=== PATIENT | male | born 1945 ===

== ENCOUNTER 2018-04-13 08:47 | Observation (INO) | payer OTHER ==
--- NOTE | 2018-04-13 09:10 | ED PDOC ---
HPI: SOB/CHF/COPD Time Seen by Provider: 04/13/18 09:01 History Per: Patient Current Symptoms Are (Timing): Still Present Severity: Mild Additional Complaint(s): SOB assoc with dizziness intermittently x 30 days but worse today. Denies chest pain or palpitations. Denies fever or cough. Past Medical History Vital Signs: Last Vital Signs Temp 97.8 F 04/13/18 08:55 Pulse 108 H 04/13/18 08:55 Resp 20 04/13/18 08:55 BP 173/91 H 04/13/18 08:55 Pulse Ox 97 04/13/18 08:55 - Medical History PMH: CAD - Surgical History Surgical History: CABG - Family History Family History: States: Unknown Family Hx - Allergies Allergies/Adverse Reactions: Allergies Allergy/AdvReac Type Severity Reaction Status Date / Time Unobtainable Allergy Verified 04/13/18 09:01 Review of Systems ROS Statement: Except As Marked, All Systems Reviewed And Found Negative Respiratory: Positive for: Shortness of Breath Neurological: Positive for: Dizziness Physical Exam - Reviewed Nursing Documentation Reviewed: Yes Vital Signs Reviewed: Yes - Physical Exam Appears: Positive for: Non-toxic, No Acute Distress Head Exam: Positive for: ATRAUMATIC, NORMAL INSPECTION, NORMOCEPHALIC Skin: Positive for: Normal Color, Warm, DRY Eye Exam: Positive for: EOMI, Normal appearance, PERRL ENT: Positive for: Normal ENT Inspection Neck: Positive for: Normal, Painless ROM Cardiovascular/Chest: Positive for: Regular Rate, Rhythm Respiratory: Positive for: CNT, Normal Breath Sounds Gastrointestinal/Abdominal: Positive for: Normal Exam, Soft Back: Positive for: Normal Inspection Extremity: Positive for: Normal ROM Neurologic/Psych: Positive for: Alert, Oriented - Laboratory Results Result Diagrams: 04/13/18 09:09 04/13/18 09:09 - ECG O2 Sat by Pulse Oximetry: 97 Disposition - Clinical Impression Clinical Impression: Abnormal EKG - Patient ED Disposition Is Patient to be Admitted: Yes - Disposition Disposition Time: 12:24 Condition: FAIR - Pt Status Changed To: Hospital Disposition Of: Observation - POA Present On Arrival: None
[2018-04-13 09:22] LABS: BASO % 0.4 % (0.0-2.0); EOS # 0.1 K/uL (0.0-0.7); EOS % 0.7 % (0.0-4.0); HEMOGLOBIN 14.9 g/dL (12.0-18.0); LYMPH % 22.5 % (20.0-40.0); MEAN CELL VOLUME 91.7 fl (80.0-94.0); MEAN CORPUSCULAR HEMOGLOBIN 29.9 pg (27.0-31.0); MEAN CORPUSCULAR HGB CONC 32.7 g/dL (33.0-37.0); MEAN PLATELET VOLUME 10.3 fl (7.2-11.7); MONO # 0.7 K/uL (0.0-0.8); MONO % 7.5 % (0.0-10.0); NEUT % 68.9 % (50.0-75.0); NRBC % 0.2 % (0.0-0.0); RBC 4.96 Mil/uL (4.40-5.90); RED CELL DISTRIBUTION WIDTH 14.3 % (11.5-14.5); WHITE BLOOD COUNT 8.7 K/uL (4.8-10.8)
[2018-04-13 09:38] LABS: ALB/GLOB RATIO 1.1 (1.0-2.1); ALBUMIN 3.8 g/dL (3.5-5.0); ALT/SGPT 46 U/L (21-72); AST/SGOT 36 U/L (17-59); BLOOD UREA NITROGEN 18 mg/dl (9-20); CALCIUM 8.4 mg/dL (8.4-10.2); GFR NON-AFRICAN AMERICAN > 60
[2018-04-13] MEDS ORDERED: Potassium Chloride 20 mEq ER Tab PO ONE ×2 (10:07→15:14)
--- NOTE | 2018-04-13 10:15 | RAD ---
Date of service: 04/13/2018 HISTORY: <info_study_reason> COMPARISON: No prior. TECHNIQUE: Chest PA and lateral FINDINGS: LINES AND TUBES: None. LUNG AND PLEURA: The lungs are well inflated. There is mild pulmonary venous congestion and interstitial pulmonary edema. There are small effusions. No pneumothorax. HEART AND MEDIASTINUM: Mild cardiomegaly and prominent central vasculature. Status post CABG with there are aortic atherosclerotic calcification present. The hilar and mediastinal contours are within normal limits. SKELETAL STRUCTURES: The bony structures are within normal limits for the patient's age. VISUALIZED UPPER ABDOMEN: Normal. OTHER FINDINGS: None. IMPRESSION: Mild congestive heart failure.
--- NOTE | 2018-04-13 13:37 | CP.PCM.HP ---
History of Present Illness - History of Present Illness History of Present Illness: CC: shortness of breath and dizziness HPI: 72 year old male PMH CAD, CABG 10 years ago, smoker, DM, not taking any medications presents to the ED today with a complaint of dyspnea and dizziness for the past month, however worsening, moderate to severe over the past couple days, not ameliorated by anything at home as he is noncompliant. He states his primary care physician is at [facility]. In the ED, patients initial troponin neg, EKG significant for ST depressions and T wave inversions in anterolateral leads, as well as prolonged QTc. Dimer +600, CTA neg PE, +mod large bilateral pleural effusions, pulmonary vascular congestion, consider pulmonary htn. CXR mild pulmonary vascular congestion. Currently patient is sa turating low 90s on room air, appears comfortable, states he feels midly improved. Mild tachycardia between 101-110 heart rate, normotensive, normal respirations. Place on obs tele to trend troponins, EKG. ROS: per HPI all other systems reviewed and negative Present on Admission - Present on Admission Any Indicators Present on Admission: Yes History of Uncontrolled Diabetes: Yes Past Patient History - Past Social History Smoking Status: Never Smoked - CARDIAC Hx Hypertension: Yes - ENDOCRINE/METABOLIC Hx Diabetes Mellitus Type 1: Yes - PSYCHIATRIC Hx Substance Use: No - SURGICAL HISTORY Hx Coronary Artery Bypass Graft: Yes - ANESTHESIA Hx Anesthesia: Yes Hx Anesthesia Reactions: No Hx Malignant Hyperthermia: No Meds Allergies/Adverse Reactions: Allergies Allergy/AdvReac Type Severity Reaction Status Date / Time Unobtainable Allergy Verified 04/13/18 09:01 Physical Exam - Constitutional Appears: Non-toxic, No Acute Distress - Head Exam Head Exam: ATRAUMATIC, NORMOCEPHALIC - Eye Exam Eye Exam: EOMI, Normal appearance, PERRL - ENT Exam ENT Exam: Mucous Membranes Moist, Normal Oropharynx - Respiratory Exam Respiratory Exam: Clear to Auscultation Bilateral, NORMAL BREATHING PATTERN - Cardiovascular Exam Cardiovascular Exam: RRR, +S1, +S2 - GI/Abdominal Exam GI & Abdominal Exam: Normal Bowel Sounds, Soft. absent: Mass, Tenderness - Extremities Exam Extremities exam: Positive for: normal capillary refill, pedal pulses present - Back Exam Back exam: absent: CVA tenderness (L), CVA tenderness (R) - Neurological Exam Neurological exam: Alert, Oriented x3 - Psychiatric Exam Psychiatric exam: Normal Affect, Normal Mood - Skin Skin Exam: Dry, Warm Results - Vital Signs Recent Vital Signs: Last Vital Signs Temp 97.8 F 04/13/18 08:55 Pulse 95 H 04/13/18 11:12 Resp 22 04/13/18 11:12 BP 155/102 H 04/13/18 11:12 Pulse Ox 97 04/13/18 12:24 - Labs Result Diagrams: 04/13/18 09:09 04/13/18 09:09 Labs: Laboratory Results - last 24 hr 04/13/18 04/13/18 04/13/18 09:06 09:09 09:09 WBC 8.7 RBC 4.96 Hgb 14.9 Hct 45.5 MCV 91.7 MCH 29.9 MCHC 32.7 L RDW 14.3 Plt Count 230 MPV 10.3 Neut % (Auto) 68.9 Lymph % (Auto) 22.5 Davison % (Auto) 7.5 Eos % (Auto) 0.7 Baso % (Auto) 0.4 Neut # (Auto) 6.0 Lymph # (Auto) 2.0 Davison # (Auto) 0.7 Eos # (Auto) 0.1 Baso # (Auto) 0.0 D-Dimer, Quantitative Sodium 133 Potassium 3.4 L Chloride 100 Carbon Dioxide 22 Anion Gap 14 BUN 18 Creatinine 0.8 Est GFR ( Amer) > 60 Est GFR (Non-Af Amer) > 60 POC Glucose (mg/dL) 281 H Random Glucose 323 H Calcium 8.4 Total Bilirubin 0.6 AST 36 ALT 46 Alkaline Phosphatase 77 Troponin I 0.0350 Total Protein 7.2 Albumin 3.8 Globulin 3.4 Albumin/Globulin Ratio 1.1 04/13/18 09:13 WBC RBC Hgb Hct MCV MCH MCHC RDW Plt Count MPV Neut % (Auto) Lymph % (Auto) Davison % (Auto) Eos % (Auto) Baso % (Auto) Neut # (Auto) Lymph # (Auto) Davison # (Auto) Eos # (Auto) Baso # (Auto) D-Dimer, Quantitative 651 H Sodium Potassium Chloride Carbon Dioxide Anion Gap BUN Creatinine Est GFR ( Amer) Est GFR (Non-Af Amer) POC Glucose (mg/dL) Random Glucose Calcium Total Bilirubin AST ALT Alkaline Phosphatase Troponin I Total Protein Albumin Globulin Albumin/Globulin Ratio Assessment & Plan - Assessment and Plan (Free Text) Plan: 72 year old male PMH CAD, CABG 10 years ago, smoker, DM, not taking any medications presents to the ED today with a complaint of dyspnea and dizziness for the past month, however worsening, moderate to severe over the past couple days, not ameliorated by anything at home as he is noncompliant. He states his primary care physician is at [facility]. In the ED, patients initial troponin neg, EKG significant for ST depressions and T wave inversions in anterolateral leads, as well as prolonged QTc. Dimer +600, CTA neg PE, +mod large bilateral pleural effusions, pulmonary vascular congestion, consider pulmonary htn. CXR mild pulmonary vascular congestion. Currently patient is saturating low 90s on room air, appears comfortable, states he feels midly improved. Mild tachycardia between 101-110 heart rate, normotensive, normal respirations. Place on obs tele to trend troponins, EKG. Dyspnea Pulmonary Vascular Congestion Bilateral moderate/large pleural effusions Hx CAD with CABG 10 years ago, noncompliant - Evaluate for CHF vs pulmonary hypertension - Echo ordered - consider ischemic event, no prior EKG to compare, ST depressions, T wave inversions anterolateral leads - Lasix 40 mg IVP q12h, monitor renal function - ASA, plavix, coreg 6.25 mg Q12 hours, statin - trending enzymes, echo, lipid panel, thyroid panel in AM - if enzymes negative, consider stress test DM - uncontrolled - initiate Glucotrol - ISS - accuchecks achs QT prolongation - avoid QT prolonging agents DVT ppx - Lovenox
[2018-04-13] MEDS ORDERED: Sodium Chloride 0.9% 50 ML IV ONE (14:14)
[2018-04-13] MEDS ORDERED: Iodixanol 320 MG/ML 100 ML BOTTLE IV ONE (14:14)
[2018-04-13 14:55] LABS: BARBITURATES, UR NEGATIVE (NEGATIVE); BENZODIAZEPINES, UR NEGATIVE (NEGATIVE); OPIATES, UR NEGATIVE (NEGATIVE); PHENCYCLIDINE, UR NEGATIVE (NEGATIVE)
--- NOTE | 2018-04-13 15:16 | CT ---
Date of service: 04/13/2018 PROCEDURE: CT Chest with contrast (Pulmonary Angiogram) HISTORY: sob COMPARISON: None available. TECHNIQUE: Axial computed tomography images were obtained of the chest in the pulmonary arterial phase of enhancement. Coronal and sagittal reformatted images were created and reviewed. Intravenous contrast dose: 99 cc of Visipaque 320 intravenously. Radiation dose: Total exam DLP = 363.51 mGy-cm. This CT exam was performed using one or more of the following dose reduction techniques: Automated exposure control, adjustment of the mA and/or kV according to patient size, and/or use of iterative reconstruction technique. FINDINGS: PULMONARY ARTERIES: No evidence of central pulmonary embolus. The peripheral small pulmonary arteries in the lower lobes are not well opacified. AORTA: No acute findings. No thoracic aortic aneurysm. Atherosclerotic calcification noted. LUNGS: Small opacities noted at the lung bases likely atelectasis. The possibility of pneumonia in the left lower lobe is not totally excluded. PLEURAL SPACES: There is moderate to large bilateral pleural effusions. HEART: The heart is mildly enlarged. Main pulmonary artery is enlarged. LYMPH NODES: Mildly enlarged mediastinal lymph nodes are noted. BONES, CHEST WALL: Unremarkable. No fracture or destructive lesion OTHER FINDINGS: Unremarkable. IMPRESSION: No evidence of central pulmonary embolus. Mildly to moderately enlarged main pulmonary artery suggestive of pulmonary hypertension. Cardiomegaly. Moderate to large bilateral pleural effusions. Pulmonary vascular congestion. Small opacities at the lower lobe of the lungs more prominent on the left.
[2018-04-13] MEDS: Enoxaparin 40 mg Syringe SC SCH (15:47)
[2018-04-13] MEDS ORDERED: Insulin Regular 100 units/ml ONE (17:55)
[2018-04-13] MEDS: Insulin Lispro (humaLOG) 100 Units/ml Inj SC SCH ×2 (18:03→23:07)
--- NOTE | 2018-04-13 19:05 | CARD ---
APPROVED REPORT Date of service: 04/13/2018 EKG Measurement Heart [id number] <Conclusion> Sinus tachycardia Possible Left atrial enlargement Left ventricular hypertrophy ST & T wave abnormality, consider anterolateral ischemia Abnormal ECG
--- NOTE | 2018-04-13 19:14 | CARD ---
APPROVED REPORT Date of service: 04/13/2018 EXAM: Two-dimensional and M-mode echocardiogram with Doppler and color Doppler. Other Information Quality : GoodRhythm : Tachycardia INDICATION Dyspnea Surgery/Intervention CABD DIMENSIONS IVSd1.37 (0.7-1.1cm)LVDd5.47 (3.9-5.9cm) LVOT Diameter2.15 (1.8-2.4cm)PWd1.15 (0.7-1.1cm) IVSs1.29 (0.8-1.2cm)LVDs4.59 (2.5-4.0cm) FS (%) 16.2 %PWs1.60 (0.8-1.2cm) M-Mode DIMENSIONS Left Atrium (MM)5.44 (2.5-4.0cm)IVSd1.26 (0.7-1.1cm) Aortic Root3.53 (2.2-3.7cm)LVDd5.44 (4.0-5.6cm) Aortic Cusp Exc.1.74 (1.5-2.0cm)PWd1.15 (0.7-1.1cm) IVSs1.24 cmFS (%) 14 % LVDs4.71 (2.0-3.8cm)PWs1.65 cm Aortic Valve AoV Peak Leiufyng34.8cm/sAoV VTI14.9cmAO Peak GR.4mmHg LVOT Peak Qgapzwzp72.6cm/sLVOT VTI8.12cmAO Mean GR.2mmHg KEI (VMAX)1.58hp8PUQ (VTI)1.12cm2 Mitral Valve MV E Dtucxagr11.1cm/sMV DECEL QWBN171mlOS A Phfgrikw58.6cm/s MV NUF40ozP/A ratio1.8MVA (PHT)6.10cm2 TDI Lateral E' Peak V11.24cm/sMedial E' Peak V4.64cm/sE/Lateral E'6.5 E/Medial E'15.8 Tricuspid Valve TR Peak Xvdkmcpd559po/sRAP TWYJFNRM59htXcXF Peak Gr.50mmHg GMOR52qhOc LEFT VENTRICLE The left ventricle is normal size. There is borderline to mild concentric left ventricular hypertrophy. The systolic function is severely impaired. The estimated ejection fraction is 20-25% There is global hypokinesis of the left ventricle. Transmitral Doppler flow pattern is Grade II-pseudonormal filling dynamics. No left ventricle thrombus noted on this study. There is no ventricular septal defect visualized. There is no left ventricular aneurysm. There is no mass noted in the left ventricle. RIGHT VENTRICLE The right ventricle is normal size. There is normal right ventricular wall thickness. The right ventricular systolic function is normal. ATRIA The left atrium is moderately dilated. The right atrium size is normal. The interatrial septum is intact with no evidence for an atrial septal defect. AORTIC VALVE The aortic valve is normal in structure. No aortic regurgitation is present. There is no aortic valvular stenosis. There is no aortic valvular vegetation. MITRAL VALVE The mitral valve is normal in structure. There is no evidence of mitral valve prolapse. There is no mitral valve stenosis. There is moderate mitral valve regurgitation noted. TRICUSPID VALVE The tricuspid valve is normal in structure. There is moderate tricuspid valve regurgitation noted. RVSP is calculated at 59 mm Hg. Consistent with moderate pulmonary HTN. There is no tricuspid valve prolapse or vegetation. There is no tricuspid valve stenosis. PULMONIC VALVE The pulmonary valve is normal in structure. There is trace pulmonic valvular regurgitation. There is no pulmonic valvular stenosis. GREAT VESSELS The aortic root is normal in size. The ascending aorta is normal in size. The pulmonary artery is normal. The IVC is normal in size and collapses >50% with inspiration. PERICARDIAL EFFUSION There is no pericardial effusion. There is no pleural effusion. <Conclusion> There is borderline to mild concentric left ventricular hypertrophy. The estimated ejection fraction is 20-25% Transmitral Doppler flow pattern is Grade II-pseudonormal filling dynamics. The left atrium is moderately dilated. There is moderate mitral valve regurgitation noted. There is moderate tricuspid valve regurgitation noted. RVSP is calculated at 59 mm Hg. Consistent with moderate pulmonary HTN. The IVC is normal in size and collapses >50% with inspiration.
[2018-04-14 05:45] LABS: BLOOD UREA NITROGEN 20 mg/dl (9-20); CALCIUM 8.3 mg/dL (8.4-10.2); GFR NON-AFRICAN AMERICAN > 60; HDL CHOLESTEROL 41 MG/DL (30-70)
[2018-04-14 05:55] LABS: LDL CHOLESTEROL 103 mg/dL (0-129)
[2018-04-14 05:59] LABS: T4 9.55 ug/dl (5.5-11.0)
[2018-04-14] MEDS: Enoxaparin 40 mg Syringe SC SCH (08:54)
--- NOTE | 2018-04-14 08:55 | CP.PCM.PN ---
Subjective - Date & Time of Evaluation Date of Evaluation: 04/14/18 Time of Evaluation: 08:55 - Subjective Subjective: 72M seen and evaluated at bedside. Resting comfortably and eating breakfast. States he is feeling much better since he was admitted. States he no longer feels dizzy and does not complain of shortness of breath. States he has no pain on inspiration or breathing and has no chest pain. Denies N/V/F/C. Objective - Vital Signs/Intake and Output Vital Signs (last 24 hours): Temp Pulse Resp BP Pulse Ox 97.9 F 66 18 147/79 96 04/14/18 07:48 04/14/18 07:48 04/14/18 07:48 04/14/18 07:48 04/14/18 07:48 - Medications Medications: Current Medications Acetaminophen (Tylenol 325mg Tab) 650 mg PO Q6 PRN PRN Reason: Fever >100.4 F Aspirin (Aspirin Chewable) 81 mg PO DAILY [facility] Atorvastatin Calcium (Lipitor) 40 mg PO HS [facility] Last Admin: 04/13/18 23:43 Dose: 40 mg Carvedilol (Coreg) 6.25 mg PO Q12 [facility] Last Admin: 04/13/18 23:43 Dose: 6.25 mg Clopidogrel Bisulfate (Plavix) 75 mg PO DAILY [facility] Enoxaparin Sodium (Lovenox) 40 mg SC DAILY [facility]; Protocol Last Admin: 04/13/18 15:47 Dose: 40 mg Furosemide (Lasix) 40 mg IVP Q12H [facility] Last Admin: 04/14/18 04:30 Dose: 40 mg Insulin Human Lispro (Humalog) 0 units SC [facility]; Protocol Last Admin: 04/13/18 23:07 Dose: Not Given - Labs Labs: 04/13/18 09:09 04/14/18 04:35 - Constitutional Appears: Well, Non-toxic, No Acute Distress - Head Exam Head Exam: ATRAUMATIC, NORMOCEPHALIC - Eye Exam Eye Exam: EOMI, Normal appearance, PERRL - ENT Exam ENT Exam: Mucous Membranes Moist, Normal Oropharynx - Respiratory Exam Respiratory Exam: Clear to Ausculation Bilateral, NORMAL BREATHING PATTERN - Cardiovascular Exam Cardiovascular Exam: REGULAR RHYTHM, JVD, +S1, +S2 - GI/Abdominal Exam GI & Abdominal Exam: Soft, Normal Bowel Sounds - Extremities Exam Extremities Exam: Normal Capillary Refill. absent: Pedal Edema - Back Exam Back Exam: NORMAL INSPECTION - Neurological Exam Neurological Exam: Alert, Awake, Oriented x3 - Psychiatric Exam Psychiatric exam: Normal Affect, Normal Mood - Skin Skin Exam: Dry, Normal Color, Warm Assessment and Plan - Assessment and Plan (Free Text) Assessment: 72 year old male PMH CAD, CABG 10 years ago, smoker, DM, not taking any medications presents to the ED today with a complaint of dyspnea and dizziness for the past month, however worsening, moderate to severe over the past couple days, not ameliorated by anything at home as he is noncompliant. He states his primary care physician is at [facility]. In the ED, patients initial troponin neg, EKG significant for ST depressions and T wave inversions in anterolateral leads, as well as prolonged QTc. Dimer +600, CTA neg PE, +mod large bilateral pleural effusions, pulmonary vascular congestion, consider pul monary htn. CXR mild pulmonary vascular congestion. Currently patient is saturating low 90s on room air, appears comfortable, states he has improved. Pulse rate 66, normotensive, normal respirations. Plan: Dyspnea Pulmonary Vascular Congestion Bilateral moderate/large pleural effusions Hx CAD with CABG 10 years ago, noncompliant - Evaluate for CHF vs pulmonary hypertension - Echo: EF 20-25%; moderate mitral valve regurg, moderated tricuspid valve regurg noted - consider ischemic event, no prior EKG to compare, ST depressions, T wave inversions anterolateral leads - Lasix 40 mg IVP q12h, monitor renal function - ASA, plavix, coreg 6.25 mg Q12 hours, statin - trending enzymes, echo, lipid panel, thyroid panel in AM - if enzymes negative, consider stress test - troponins negative x4 - cholesterol WNL - TSH WNL, T4 WNL - Aldactone 12.5 mg PO daily started, continue lasix 40 mg IV Q12, losartan 12.5 mg PO daily, DAPT continue - cardiology consult ordered, Dr. Martel - elsy appreciated DM - uncontrolled - initiate Glucotrol - ISS - accuchecks achs QT prolongation - avoid QT prolonging agents DVT ppx - Lovenox
[2018-04-14] MEDS: Insulin Lispro (humaLOG) 100 Units/ml Inj SC SCH ×4 (08:56→22:00)
[2018-04-14] MEDS ORDERED: Magnesium Sulfate 1 gm in D5W 1 GM/100 ML BAG IVPB ONE (09:30)
--- NOTE | 2018-04-14 13:02 | CP.PCM.CON ---
History of Present Illness - History of Present Illness History of Present Illness: pt seen and examined 04-13-18 at 5pm in ER holding bed 17. note is for 04-13-18 Past Patient History - Past Medical History & Family History Past Medical History?: Yes - Past Social History Smoking Status: Former Smoker - CARDIAC Hx Cardiac Disorders: Yes Hx Hypertension: Yes - PULMONARY Hx Respiratory Disorders: No - NEUROLOGICAL Hx Neurological Disorder: No - HEENT Hx HEENT Problems: No - RENAL Hx Chronic Kidney Disease: No - ENDOCRINE/METABOLIC Hx Endocrine Disorders: Yes Hx Diabetes Mellitus Type 2: Yes - HEMATOLOGICAL/ONCOLOGICAL Hx Blood Disorders: No - INTEGUMENTARY Hx Dermatological Problems: No - MUSCULOSKELETAL/RHEUMATOLOGICAL Hx Musculoskeletal Disorders: No Hx Falls: No - GASTROINTESTINAL Hx Gastrointestinal Disorders: No - GENITOURINARY/GYNECOLOGICAL Hx Genitourinary Disorders: No - PSYCHIATRIC Hx Psychophysiologic Disorder: No Hx Substance Use: No - SURGICAL HISTORY Hx Surgeries: Yes Hx Coronary Artery Bypass Graft: Yes - ANESTHESIA Hx Anesthesia: Yes Hx Anesthesia Reactions: No Hx Malignant Hyperthermia: No Meds Allergies/Adverse Reactions: Allergies Allergy/AdvReac Type Severity Reaction Status Date / Time No Known Allergies Allergy Verified 04/14/18 09:01 - Medications Medications: Current Medications Acetaminophen (Tylenol 325mg Tab) 650 mg PO Q6 PRN PRN Reason: Fever >100.4 F Aspirin (Aspirin Chewable) 81 mg PO DAILY [facility] Last Admin: 04/14/18 08:55 Dose: 81 mg Atorvastatin Calcium (Lipitor) 40 mg PO HS [facility] Last Admin: 04/13/18 23:43 Dose: 40 mg Carvedilol (Coreg) 6.25 mg PO Q12 [facility] Last Admin: 04/14/18 08:55 Dose: 6.25 mg Clopidogrel Bisulfate (Plavix) 75 mg PO DAILY [facility] Last Admin: 04/14/18 08:55 Dose: 75 mg Enoxaparin Sodium (Lovenox) 40 mg SC DAILY [facility]; Protocol Last Admin: 04/14/18 08:54 Dose: 40 mg Furosemide (Lasix) 40 mg IVP Q12H [facility] Last Admin: 04/14/18 04:30 Dose: 40 mg Insulin Human Lispro (Humalog) 0 units SC [facility]; Protocol Last Admin: 04/14/18 11:59 Dose: 3 units Losartan Potassium (Cozaar) 12.5 mg PO DAILY [facility] Last Admin: 04/14/18 09:57 Dose: 12.5 mg Spironolactone (Aldactone) 12.5 mg PO DAILY [facility] Last Admin: 04/14/18 09:57 Dose: 12.5 mg Results - Vital Signs Recent Vital Signs: Last Vital Signs Temp 98.1 F 04/14/18 12:01 Pulse 65 04/14/18 12:01 Resp 18 04/14/18 12:01 BP 113/56 L 04/14/18 12:01 Pulse Ox 97 04/14/18 12:01 - Labs Result Diagrams: 04/13/18 09:09 04/14/18 04:35 Labs: Laboratory Results - last 24 hr 04/13/18 04/13/18 04/13/18 14:30 16:25 17:16 Sodium Potassium Chloride Carbon Dioxide Anion Gap BUN Creatinine Est GFR ( Amer) Est GFR (Non-Af Amer) POC Glucose (mg/dL) 223 H Random Glucose Calcium Magnesium Troponin I 0.0290 Triglycerides Cholesterol LDL Cholesterol Direct HDL Cholesterol Thyroxine (T4) TSH 3rd Generation Urine Opiates Screen Negative Urine Methadone Screen Negative Ur Barbiturates Screen Negative Ur Phencyclidine Scrn Negative Ur Amphetamines Screen Negative U Benzodiazepines Scrn Negative U Oth Cocaine Metabols Negative U Cannabinoids Screen Negative 04/13/18 04/13/18 04/14/18 22:22 22:55 04:35 Sodium 137 Potassium 3.5 L Chloride 100 Carbon Dioxide 25 Anion Gap 16 BUN 20 Creatinine 0.9 Est GFR ( Amer) > 60 Est GFR (Non-Af Amer) > 60 POC Glucose (mg/dL) 125 H Random Glucose 171 H Calcium 8.3 L Magnesium 1.4 L Troponin I 0.0280 0.0260 Triglycerides 87 Cholesterol 154 LDL Cholesterol Direct 103 HDL Cholesterol 41 Thyroxine (T4) 9.55 TSH 3rd Generation 2.82 Urine Opiates Screen Urine Methadone Screen Ur Barbiturates Screen Ur Phencyclidine Scrn Ur Amphetamines Screen U Benzodiazepines Scrn U Oth Cocaine Metabols U Cannabinoids Screen 04/14/18 05:31 Sodium Potassium Chloride Carbon Dioxide Anion Gap BUN Creatinine Est GFR ( Amer) Est GFR (Non-Af Amer) POC Glucose (mg/dL) 166 H Random Glucose Calcium Magnesium Troponin I Triglycerides Cholesterol LDL Cholesterol Direct HDL Cholesterol Thyroxine (T4) TSH 3rd Generation Urine Opiates Screen Urine Methadone Screen Ur Barbiturates Screen Ur Phencyclidine Scrn Ur Amphetamines Screen U Benzodiazepines Scrn U Oth Cocaine Metabols U Cannabinoids Screen
[2018-04-15 05:42] LABS: BLOOD UREA NITROGEN 24 mg/dl (9-20); CALCIUM 8.2 mg/dL (8.4-10.2); GFR NON-AFRICAN AMERICAN > 60
[2018-04-15] MEDS: Insulin Lispro (humaLOG) 100 Units/ml Inj SC SCH ×2 (06:34→11:39)
[2018-04-15] MEDS ORDERED: Potassium Chloride 20 mEq ER Tab PO ONE (08:00)
[2018-04-15 08:30] VITALS: RESP 18; TEMP 98; O2SAT 95
[2018-04-15] MEDS: Enoxaparin 40 mg Syringe SC SCH (08:39)
--- NOTE | 2018-04-15 09:49 | CP.PCM.DIS ---
Provider - Provider Date of Admission: 04/13/18 12:23 Attending physician: Akilah Harvey DO Consults: 04/13/18 15:40 Cardiology Consult Routine Comment: Consulting Provider: Nasir Martel Consulting Physician: Nasir Martel Reason for Consult: dyspnea, ischemia on EKG, neg trop Time Spent in preparation of Discharge (in minutes): 30 Diagnosis - Discharge Diagnosis (1) Abnormal EKG Status: Acute Hospital Course - Lab Results Lab Results: Most Recent Lab Values WBC 8.7 K/uL (4.8-10.8) 04/13/18 09:09 RBC 4.96 Mil/uL (4.40-5.90) 04/13/18 09:09 Hgb 14.9 g/dL (12.0-18.0) 04/13/18 09:09 Hct 45.5 % (35.0-51.0) 04/13/18 09:09 MCV 91.7 fl (80.0-94.0) 04/13/18 09:09 MCH 29.9 pg (27.0-31.0) 04/13/18 09:09 MCHC 32.7 g/dL (33.0-37.0) L 04/13/18 09:09 RDW 14.3 % (11.5-14.5) 04/13/18 09:09 Plt Count 230 K/uL (130-400) 04/13/18 09:09 MPV 10.3 fl (7.2-11.7) 04/13/18 09:09 Neut % (Auto) 68.9 % (50.0-75.0) 04/13/18 09:09 Lymph % (Auto) 22.5 % (20.0-40.0) 04/13/18 09:09 [place] % (Auto) 7.5 % (0.0-10.0) 04/13/18 09:09 Eos % (Auto) 0.7 % (0.0-4.0) 04/13/18 09:09 Baso % (Auto) 0.4 % (0.0-2.0) 04/13/18 09:09 Neut # (Auto) 6.0 K/uL (1.8-7.0) 04/13/18 09:09 Lymph # (Auto) 2.0 K/uL (1.0-4.3) 04/13/18 09:09 [place] # (Auto) 0.7 K/uL (0.0-0.8) 04/13/18 09:09 Eos # (Auto) 0.1 K/uL (0.0-0.7) 04/13/18 09:09 Baso # (Auto) 0.0 K/uL (0.0-0.2) 04/13/18 09:09 D-Dimer, Quantitative 651 ng/mlDDU (0-230) H 04/13/18 09:13 Sodium 135 mmol/l (132-148) 04/15/18 04:45 Potassium 3.2 MMOL/L (3.6-5.0) L 04/15/18 04:45 Chloride 99 mmol/L (98-107) 04/15/18 04:45 Carbon Dioxide 28 mmol/L (22-30) 04/15/18 04:45 Anion Gap 11 (10-20) 04/15/18 04:45 BUN 24 mg/dl (9-20) H 04/15/18 04:45 Creatinine 0.9 mg/dl (0.8-1.5) 04/15/18 04:45 Est GFR ( Amer) > 60 04/15/18 04:45 Est GFR (Non-Af Amer) > 60 04/15/18 04:45 POC Glucose (mg/dL) 272 mg/dL (65-110) H 04/14/18 21:42 Random Glucose 208 mg/dL (75-110) H 04/15/18 04:45 Calcium 8.2 mg/dL (8.4-10.2) L 04/15/18 04:45 Magnesium 1.4 MG/DL (1.6-2.3) L 04/14/18 04:35 Total Bilirubin 0.6 mg/dl (0.2-1.3) 04/13/18 09:09 AST 36 U/L (17-59) 04/13/18 09:09 ALT 46 U/L (21-72) 04/13/18 09:09 Alkaline Phosphatase 77 U/L (38-126) 04/13/18 09:09 Troponin I 0.0260 ng/mL (0.00-0.120) 04/14/18 04:35 Total Protein 7.2 G/DL (6.3-8.2) 04/13/18 09:09 Albumin 3.8 g/dL (3.5-5.0) 04/13/18 09:09 Globulin 3.4 gm/dL (2.2-3.9) 04/13/18 09:09 Albumin/Globulin Ratio 1.1 (1.0-2.1) 04/13/18 09:09 Triglycerides 87 mg/DL (0-149) 04/14/18 04:35 Cholesterol 154 mg/dL (0-199) 04/14/18 04:35 LDL Cholesterol Direct 103 mg/dL (0-129) 04/14/18 04:35 HDL Cholesterol 41 MG/DL (30-70) 04/14/18 04:35 Thyroxine (T4) 9.55 ug/dl (5.5-11.0) 04/14/18 04:35 TSH 3rd Generation 2.82 mIU/ML (0.46-4.68) 04/14/18 04:35 Urine Opiates Screen Negative (NEGATIVE) 04/13/18 14:30 Urine Methadone Screen Negative (NEGATIVE) 04/13/18 14:30 Ur Barbiturates Screen Negative (NEGATIVE) 04/13/18 14:30 Ur Phencyclidine Scrn Negative (NEGATIVE) 04/13/18 14:30 Ur Amphetamines Screen Negative (NEGATIVE) 04/13/18 14:30 U Benzodiazepines Scrn Negative (NEGATIVE) 04/13/18 14:30 U Oth Cocaine Metabols Negative (NEGATIVE) 04/13/18 14:30 U Cannabinoids Screen Negative (NEGATIVE) 04/13/18 14:30 - Hospital Course Hospital Course: 72 year old male PMH CAD, CABG 10 years ago, smoker, DM, not taking any medications presents to the ED today with a complaint of dyspnea and dizziness for the past month, however worsening, moderate to severe over the past couple days, not ameliorated by anything at home as he is noncompliant. He states his primary care physician is at [facility]. In the ED, patients initial troponin neg, EKG significant for ST depressions and T wave inversions in anterolateral leads, as well as prolonged QTc. Dimer +600, CTA neg PE, +mod large bilateral pleural effusions, pulmonary vascular congestion, consider pulmonary htn. CXR mild pulmonary vascular congestion. Dr. Martel consulted and patient stable for discharge from cardiac standpoint. Patient d/c on lasix 40 mg PO daily and losartan 12.5 mg daily. Continue DAPT therapy. Will have an appointment with [facility] on 04/22 and will be given cardiac outpatient consult upon visit. - Date & Time of H&P Date of H&P: 04/15/18 Time of H&P: 09:48 Discharge Exam - Head Exam Head Exam: ATRAUMATIC, NORMOCEPHALIC - Eye Exam Eye Exam: EOMI, Normal appearance, PERRL - ENT Exam ENT Exam: Mucous Membranes Moist, Normal Oropharynx - Respiratory Exam Respiratory Exam: Clear to PA & Lateral, NORMAL BREATHING PATTERN - Cardiovascular Exam Cardiovascular Exam: REGULAR RHYTHM, JVD (improved), +S1, +S2 - GI/Abdominal Exam GI & Abdominal Exam: Normal Bowel Sounds, Soft - Extremities Exam Extremities exam: normal capillary refill, pedal pulses present - Back Exam Back exam: NORMAL INSPECTION - Neurological Exam Neurological exam: Alert, Oriented x3 - Psychiatric Exam Psychiatric exam: Normal Affect, Normal Mood - Skin Skin Exam: Dry, Normal Color, Warm Discharge Plan - Discharge Medications Prescriptions: Aspirin [Aspirin Chewable] 81 mg PO DAILY 30 Days #30 chew Atorvastatin [Lipitor] 40 mg PO HS 30 Days #30 tab Carvedilol [Coreg] 6.25 mg PO Q12 30 Days #60 tab Clopidogrel [Plavix] 75 mg PO DAILY 30 Days #30 tab Furosemide [Lasix] 40 mg PO DAILY 30 Days #30 tab Losartan [Cozaar] 12.5 mg PO DAILY 30 Days #30 tab - Follow Up Plan Condition: FAIR Disposition: HOME/ ROUTINE Instructions: Shortness of Breath (Dyspnea) (DC) Additional Instructions: billy en la clinica el alejandra 04/22/18 a las 3:40pm Referrals: [facility] [Provider Group] Nasir Martel MD [Staff Provider] - Clinical Quality Measures - Date & Time of Discharge Summary Date of Discharge Summary: 04/15/18 Time of Discharge Summary: 09:50
[2018-04-15 12:06] VITALS: BP 121/70
[2018-04-15 14:14] VITALS: PULSE 55
== END 2018-04-15 14:05 | disposition home or self-care (01) ==
LOC: H.ER 08:47 → H.ERHOLD 12:23 → H.TEL 22:41
PROVIDERS: ADMIT Student in an Organized Health Care Education/Training Program; ATTEND Student in an Organized Health Care Education/Training Program
DX: I45.81 Long QT syndrome (principal); J90 Pleural effusion, not elsewhere classified; I25.10 Atherosclerotic heart disease of native coronary artery without angina pectoris; I10 Essential (primary) hypertension; E11.65 Type 2 diabetes mellitus with hyperglycemia; Z95.1 Presence of aortocoronary bypass graft; Z91.19 Patient's noncompliance with other medical treatment and regimen; F17.210 Nicotine dependence, cigarettes, uncomplicated; Z79.4 Long term (current) use of insulin
CPT/HCPCS: 36415; 71046; 71275; 80048; 80053; 80061; 80324; 80345; 80346; 80349; 80353; 80358; 80361; 82948; 83735; 83992; 84436; 84443; 84484; 85025; 85378; 93005; 93306; 96365; 96372; 96375; 96376; 99285; G0378; J1650; J1940; J3475; Q9967

== ENCOUNTER 2018-05-31 12:23 | Inpatient (IN) | payer MEDICARE, SELFPAY ==
[2018-05-31 12:29] VITALS: BMI 24.0
[2018-05-31] MEDS ORDERED: Sodium Chloride 0.9% 1,000 ML IV STA ×2 (13:34→13:35)
--- NOTE | 2018-05-31 13:55 | ED PDOC ---
Syncope/Near Syncope/Dizziness Time Seen by Provider: 05/31/18 12:42 Chief Complaint (Nursing): Dizziness/Lightheaded Chief Complaint (Provider): Dizziness/Lightheaded History Per: Patient History/Exam Limitations: no limitations Onset/Duration Of Symptoms: Days (past few days ) Current Symptoms Are (Timing): Still Present Associated Symptoms Preceding Syncopal Episode: Lightheadedness. denies: Vertigo Additional Complaint(s): 73 year old male with a past medical history of Hypertension and CAD, who presents to the emergency department complaining of dizziness, lightheadedness, some nausea and shortness of breath, onset past few days. Patient states he had similar symptoms in April when he came for an evaluation. He denies having a ny chest pain, cough, vertigo, headache or visual changes. PMD: Kristopher Lau Past Medical History Reviewed: Historical Data, Nursing Documentation, Vital Signs Vital Signs: Last Vital Signs Temp 97.4 F L 05/31/18 12:31 Pulse 94 H 05/31/18 12:31 Resp 18 05/31/18 12:31 BP 173/98 H 05/31/18 12:31 Pulse Ox - Medical History PMH: CAD, HTN Denies: Chronic Kidney Disease - Surgical History Surgical History: CABG - Family History Family History: States: Unknown Family Hx - Immunization History Hx Tetanus Toxoid Vaccination: No Hx Influenza Vaccination: No Hx Pneumococcal Vaccination: No - Home Medications Home Medications: Ambulatory Orders Medication Instructions Recorded Aspirin [Aspirin Chewable] 81 mg PO DAILY 30 Days #30 chew 04/15/18 Atorvastatin [Lipitor] 40 mg PO HS 30 Days #30 tab 04/15/18 Carvedilol [Coreg] 6.25 mg PO Q12 30 Days #60 tab 04/15/18 Clopidogrel [Plavix] 75 mg PO DAILY 30 Days #30 tab 04/15/18 Furosemide [Lasix] 40 mg PO DAILY 30 Days #30 tab 04/15/18 Losartan [Cozaar] 12.5 mg PO DAILY 30 Days #30 tab 04/15/18 - Allergies Allergies/Adverse Reactions: Allergies Allergy/AdvReac Type Severity Reaction Status Date / Time No Known Allergies Allergy Verified 05/31/18 12:29 Review of Systems ROS Statement: Except As Marked, All Systems Reviewed And Found Negative Eyes: Positive for: Vision Change Respiratory: Positive for: Cough, Shortness of Breath Gastrointestinal: Positive for: Nausea Neurological: Positive for: Headache, Dizziness, Other (lightheadedness) Physical Exam - Reviewed Nursing Documentation Reviewed: Yes Vital Signs Reviewed: Yes - Physical Exam Appears: Positive for: Non-toxic, No Acute Distress Head Exam: Positive for: ATRAUMATIC, NORMOCEPHALIC Skin: Positive for: Normal Color, Warm, Dry Eye Exam: Positive for: Normal appearance, EOMI, PERRL ENT: Positive for: Normal ENT Inspection Neck: Positive for: Normal, Painless ROM, Supple Cardiovascular/Chest: Positive for: Regular Rate, Rhythm. Negative for: Murmur Respiratory: Positive for: Decreased Breath Sounds (on right), Crackles (basilar) Gastrointestinal/Abdominal: Positive for: Normal Exam, Soft. Negative for: Tenderness Back: Positive for: Normal Inspection. Negative for: L CVA Tenderness, R CVA Tenderness, Vertebral Tenderness Extremity: Positive for: Normal ROM. Negative for: Pedal Edema, Deformity Neurologic/Psych: Positive for: Alert, Oriented. Negative for: Motor/Sensory Deficits Medical Decision Making Medical Decision Makin Impression: lightheadedness, hyperglycemia, DKA, and dehydration Plan: --Head CT without contrast --EKG --CMP --Troponin I --CBC with differential --PTT --PT --Chest x-ray --Sodium chloride 1,000 ml --glucose, blood --urinalysis 1414 Chest x-ray FINDINGS: LUNGS: Consolidative changes both bases. Findings at the left base were seen previously. The findings right lower lobe a new. PLEURA: Persistent bilateral pleural effusions. CARDIOVASCULAR: Cardiomegaly/pulmonary vascular congestion. Atherosclerotic calcifications identified primarily aortic arch. OSSEOUS STRUCTURES: No significant abnormalities. VISUALIZED UPPER ABDOMEN: Normal. OTHER FINDINGS: None. IMPRESSION: Persistent findings left riri thorax including left lower lobe infiltrate/left pleural effusion. Right lower lobe infiltrate. This represents a new finding. [address] FINDINGS: HEMORRHAGE: No intracranial hemorrhage. BRAIN: No mass effect or edema. Moderate atrophy and moderate chronic microvascular white matter ischemic disease are noted. There is focal encephalomalacia at the left frontal lobe likely represent old infarct. VENTRICLES: Unremarkable. No hydrocephalus. CALVARIUM: Unremarkable. PARANASAL SINUSES: Unremarkable as visualized. No significant inflammatory changes. MASTOID AIR CELLS: Unremarkable as visualized. No inflammatory changes. OTHER FINDINGS: None. IMPRESSION: No evidence of acute intracranial hemorrhage intracranial collection mass effect or midline shift. Moderate atrophy and chronic microvascular white matter ischemic disease. 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 Scribe Attestation: Documented by Jimmie Jacobs, acting as a scribe for Sadaf Mo MD. Provider Scribe Attestation: All medical record entries made by the Scribe were at my direction and personally dictated by me. I have reviewed the chart and agree that the record accurately reflects my personal performance of the history, physical exam, medical decision making, and the department course for this patient. I have also personally directed, reviewed, and agree with the discharge instructions and disposition. Disposition - Disposition Forms: Health [facility] (Czech)
--- NOTE | 2018-05-31 14:18 | RAD ---
Date of service: 05/31/2018 HISTORY: Dizziness COMPARISON: 04/13/2018 two view chest. 04/13/2018 CT angiogram FINDINGS: LUNGS: Consolidative changes both bases. Findings at the left base were seen previously. The findings right lower lobe a new. PLEURA: Persistent bilateral pleural effusions. CARDIOVASCULAR: Cardiomegaly/pulmonary vascular congestion. Atherosclerotic calcifications identified primarily aortic arch. OSSEOUS STRUCTURES: No significant abnormalities. VISUALIZED UPPER ABDOMEN: Normal. OTHER FINDINGS: None. IMPRESSION: Persistent findings left riri thorax including left lower lobe infiltrate/left pleural effusion. Right lower lobe infiltrate. This represents a new finding.
--- NOTE | 2018-05-31 14:32 | CT ---
Date of service: 05/31/2018 PROCEDURE: CT HEAD WITHOUT CONTRAST. HISTORY: Vertigo COMPARISON: None available. TECHNIQUE: Axial computed tomography images were obtained through the head/brain without intravenous contrast. Radiation dose: Total exam DLP = 801.45 mGy-cm. This CT exam was performed using one or more of the following dose reduction techniques: Automated exposure control, adjustment of the mA and/or kV according to patient size, and/or use of iterative reconstruction technique. FINDINGS: HEMORRHAGE: No intracranial hemorrhage. BRAIN: No mass effect or edema. Moderate atrophy and moderate chronic microvascular white matter ischemic disease are noted. There is focal encephalomalacia at the left frontal lobe likely represent old infarct. VENTRICLES: Unremarkable. No hydrocephalus. CALVARIUM: Unremarkable. PARANASAL SINUSES: Unremarkable as visualized. No significant inflammatory changes. MASTOID AIR CELLS: Unremarkable as visualized. No inflammatory changes. OTHER FINDINGS: None. IMPRESSION: No evidence of acute intracranial hemorrhage intracranial collection mass effect or midline shift. Moderate atrophy and chronic microvascular white matter ischemic disease. 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
[2018-05-31 14:53] LABS: URINE BILIRUBIN NEGATIVE (NEGATIVE); URINE BLOOD SMALL (NEGATIVE); URINE CLARITY CLEAR (Clear); URINE COLOR YELLOW (YELLOW); URINE GLUCOSE (UA) >=500 mg/dL (NEGATIVE); URINE LEUKOCYTE ESTERASE NEG Leu/uL (Negative); URINE PROTEIN 100 mg/dL (NEGATIVE); URINE UROBILINOGEN 0.2-1.0 mg/dL (0.2-1.0)
[2018-05-31 14:53] LABS: INR 1.2; LYMPH # 1.3 K/uL (1.0-4.3); MONO # 0.4 K/uL (0.0-0.8); NEUT # 5.4 K/uL (1.8-7.0); NEUT % 74.7 % (50.0-75.0); PROTHROMBIN TIME 13.3 Seconds (9.8-13.1); WHITE BLOOD COUNT 7.2 K/uL (4.8-10.8)
[2018-05-31 14:56] LABS: ALB/GLOB RATIO 1.1 (1.0-2.1); ALBUMIN 4.2 g/dL (3.5-5.0); ALT/SGPT 43 U/L (21-72); AST/SGOT 42 U/L (17-59); BLOOD UREA NITROGEN 14 mg/dl (9-20); CALCIUM 8.8 mg/dL (8.4-10.2); GFR NON-AFRICAN AMERICAN > 60
[2018-05-31 15:01] LABS: BASO % 0.3 % (0.0-2.0); EOS % 0.4 % (0.0-4.0); HEMOGLOBIN 14.3 g/dL (12.0-18.0); LYMPH % 18.8 % (20.0-40.0); MEAN CELL VOLUME 88.6 fl (80.0-94.0); MEAN CORPUSCULAR HEMOGLOBIN 29.6 pg (27.0-31.0); MEAN CORPUSCULAR HGB CONC 33.4 g/dL (33.0-37.0); MEAN PLATELET VOLUME 10.5 fl (7.2-11.7); MONO % 5.8 % (0.0-10.0); NRBC % 0.2 % (0.0-0.0); RBC 4.83 Mil/uL (4.40-5.90); RED CELL DISTRIBUTION WIDTH 14.1 % (11.5-14.5)
[2018-05-31 16:15] LABS: VENOUS BLOOD GAS BASE EXCESS -0.1 mmol/L (0.0-2.0); VENOUS BLOOD GAS PCO2 49 mmHg (40-60); VENOUS BLOOD GAS PO2 23 mm/Hg (30-55); VENOUS BLOOD PH 7.34 (7.32-7.43)
[2018-05-31] MEDS ORDERED: Insulin Regular 100 units/ml IV STA (16:19)
[2018-05-31] MEDS ORDERED: Azithromycin 500 MG in Sodium Chloride 0.9% 250 ML IV STA (16:22)
[2018-05-31] MEDS ORDERED: Insulin Regular 100 units/ml ONE (16:36)
[2018-05-31] MEDS ORDERED: cefTRIAXone (Rocephin) 1 gm Inj ONE (16:36)
--- NOTE | 2018-05-31 17:54 | CARD ---
APPROVED REPORT Date of service: 05/31/2018 EKG Measurement Heart [id number] <Conclusion> Normal sinus rhythm Possible Left atrial enlargement Left ventricular hypertrophy with repolarization abnormality Prolonged QT Abnormal ECG
[2018-05-31] MEDS ORDERED: Azithromycin 500 MG IV IVPB ONE (17:56)
[2018-05-31] MEDS ORDERED: Glucagon Recombinant 1 mg Inj IM PRN (19:09)
[2018-05-31] MEDS ORDERED: Dextrose 50% SYRINGE Inj (50 ml) IV PRN (19:09)
--- NOTE | 2018-05-31 20:02 | CP.PCM.HP ---
<Leighton Martin - Last Filed: 05/31/18 20:07> History of Present Illness - History of Present Illness History of Present Illness: 73 y/o M with a PMHx of CAD, HTN, DM, HLD and CHF presented to ED complaining of nausea, dizziness and aggravating SOB. Pt explains feeling lightheaded, with so me mild gait imbalance, and nauseous after waking up. Patient's SOB has aggravated since 1 week ago, associated with productive cough with thick yellow sputum. Pt reprots that for the last few days, he has been experiencing nasal congestion and rhinorrhea. No ill contacts, no recent travel. Pt is able to walk up to 10 block before feeling tired with SOB, sometimes feels SOB with talking fast. Pt denies vomiting, claudication, fever, chills, falling, LOC, seizures, visual disturbances, chest pain, wheezing, palpitations, abdominal pain, diarrhea or rash. --Pt was admitted 1 month ago with SOB and dizziness and d/c'ed on lasix 40 mg PO daily and losartan 12.5 mg daily. See full report on chart. --Echocardio gram on 04/13/18: LVEF 20-25%, moderate tricuspid regurgitation, moderate pulm HTN. See ful report. PCP: [facility]. NKDA Meds: Lasix 40 mg PO daily, Losartan 12.5mg PO daily, Aspirin 81mg PO daily, Coreg 6.25mg PO Q12H, Plavix 75mg PO daily, Atorvastatin 40mg PO daily/ PHARMACY: [address] -PMHx: CAD, S/P CABG (2007), CHF, HTN, HLD, DM (since 2007 as per pt, never on metformin), -PSHx: CABG 2007 -FHx: denied -SHx: Pt stopped smoking after CABD in 2007, smoked 1ppd for 40 years, 1-2 beer a month, never rec drug use. At ED: --CBC, coags, vBG and U/Awere unremakable. --CMP remarkable for elevated glucose 469. --Head CT: No evidence of acute intra-cranial hemorrhage/collection or midline shift. --CXR: RLL infiltrate, LLL infiltrate and L pleural effusion. --IV NSS bolus x2, IV Ceftriaxone and IV Azithromycin Present on Admission - Present on Admission Any Indicators Present on Admission: Yes History of DVT/PE: No History of Uncontrolled Diabetes: Yes Urinary Catheter: No Decubitus Ulcer Present: No Review of Systems - Constitutional Constitutional: absent: Chills, Fever, Night Sweats - EENT Nose/Mouth/Throat: Nasal Congestion, Nasal Discharge. absent: Sore Throat, Neck Mass - Cardiovascular Cardiovascular: Dyspnea. absent: Chest Pain, Claudication, Diaphoresis, Leg Edema, Palpitations - Respiratory Respiratory: Cough, Dyspnea. absent: Hemoptysis, Wheezing, Pain on Inspiration - Gastrointestinal Gastrointestinal: absent: Abdominal Pain, Constipation, Hematemesis, Nausea, Vomiting - Genitourinary Genitourinary: absent: Dysuria, Flank Pain, Hematuria, Urinary Frequency Past Patient History - Past Medical History & Family History Past Medical History?: Yes - Past Social History Smoking Status: Former Smoker - CARDIAC Hx Hypertension: Yes - PULMONARY Hx Respiratory Disorders: No - NEUROLOGICAL Hx Neurological Disorder: No - HEENT Hx HEENT Problems: No - RENAL Hx Chronic Kidney Disease: No - ENDOCRINE/METABOLIC Hx Endocrine Disorders: Yes Hx Diabetes Mellitus Type 2: Yes - HEMATOLOGICAL/ONCOLOGICAL Hx Blood Disorders: No - INTEGUMENTARY Hx Dermatological Problems: No - MUSCULOSKELETAL/RHEUMATOLOGICAL Hx Musculoskeletal Disorders: No Hx Falls: No - GASTROINTESTINAL Hx Gastrointestinal Disorders: No - GENITOURINARY/GYNECOLOGICAL Hx Genitourinary Disorders: No - PSYCHIATRIC Hx Psychophysiologic Disorder: No Hx Substance Use: No - SURGICAL HISTORY Hx Coronary Artery Bypass Graft: Yes - ANESTHESIA Hx Anesthesia: Yes Hx Anesthesia Reactions: No Hx Malignant Hyperthermia: No Meds Allergies/Adverse Reactions: Allergies Allergy/AdvReac Type Severity Reaction Status Date / Time No Known Allergies Allergy Verified 05/31/18 12:29 Physical Exam - Constitutional Appears: No Acute Distress - Head Exam Head Exam: ATRAUMATIC, NORMAL INSPECTION - Eye Exam Eye Exam: EOMI, Normal appearance, PERRL - ENT Exam ENT Exam: Mucous Membranes Moist - Neck Exam Neck exam: Positive for: Full Rom. Negative for: Lymphadenopathy, Meningismus - Respiratory Exam Respiratory Exam: Decreased Breath Sounds (bilateral bases), NORMAL BREATHING PATTERN. absent: Rhonchi, Wheezes, Respiratory Distress - Cardiovascular Exam Cardiovascular Exam: REGULAR RHYTHM, +S1, +S2 - GI/Abdominal Exam GI & Abdominal Exam: Soft. absent: Distended, Guarding, Rebound, Rigid, Tenderness - Extremities Exam Extremities exam: Positive for: full ROM, normal inspection. Negative for: calf tenderness, pedal edema - Back Exam Back exam: absent: CVA tenderness (L), CVA tenderness (R) - Neurological Exam Neurological exam: Alert, Oriented x3 Results - Vital Signs Recent Vital Signs: Last Vital Signs Temp 97.4 F L 05/31/18 12:31 Pulse 75 05/31/18 18:14 Resp 18 05/31/18 18:14 BP 159/100 H 05/31/18 18:14 Pulse Ox 97 05/31/18 18:14 - Labs Result Diagrams: 05/31/18 13:39 05/31/18 13:39 Labs: Laboratory Results - last 24 hr 05/31/18 05/31/18 05/31/18 13:39 13:39 13:39 WBC 7.2 RBC 4.83 Hgb 14.3 Hct 42.8 MCV 88.6 D MCH 29.6 MCHC 33.4 RDW 14.1 Plt Count 234 MPV 10.5 Neut % (Auto) 74.7 Lymph % (Auto) 18.8 L [place] % (Auto) 5.8 Eos % (Auto) 0.4 Baso % (Auto) 0.3 Neut # (Auto) 5.4 Lymph # (Auto) 1.3 [place] # (Auto) 0.4 Eos # (Auto) 0.0 Baso # (Auto) 0.0 PT 13.3 H INR 1.2 APTT 33.0 pO2 ABG Carboxyhemoglobin POC ABG HHb (Measured) ABG Methemoglobin VBG pH VBG pCO2 VBG HCO3 VBG O2 Sat (Calc) VBG Base Excess VBG Hgb O2 Saturation Hemoglobin Sodium 134 Potassium 3.6 Chloride 91 L Carbon Dioxide 24 Anion Gap 23 H BUN 14 Creatinine 0.8 Est GFR ( Amer) > 60 Est GFR (Non-Af Amer) > 60 Random Glucose 469 H* D Calcium 8.8 Total Bilirubin 0.9 AST 42 ALT 43 Alkaline Phosphatase 122 Troponin I 0.0180 Total Protein 7.9 Albumin 4.2 Globulin 3.7 Albumin/Globulin Ratio 1.1 Urine Color Urine Clarity Urine pH Ur Specific [place] Urine Protein Urine Glucose (UA) Urine Ketones Urine Blood Urine Nitrate Urine Bilirubin Urine Urobilinogen Ur Leukocyte Esterase Urine RBC (Auto) Urine Microscopic WBC 05/31/18 05/31/18 14:00 16:10 WBC RBC Hgb Hct MCV MCH MCHC RDW Plt Count MPV Neut % (Auto) Lymph % (Auto) [place] % (Auto) Eos % (Auto) Baso % (Auto) Neut # (Auto) Lymph # (Auto) [place] # (Auto) Eos # (Auto) Baso # (Auto) PT INR APTT pO2 23 L ABG Carboxyhemoglobin 1.4 POC ABG HHb (Measured) 63.9 H ABG Methemoglobin 3.1 H VBG pH 7.34 VBG pCO2 49 VBG HCO3 22.9 VBG O2 Sat (Calc) 33.0 L VBG Base Excess -0.1 L VBG Hgb O2 Saturation 31.5 L Hemoglobin 14.7 Sodium Potassium Chloride Carbon Dioxide Anion Gap BUN Creatinine Est GFR ( Amer) Est GFR (Non-Af Amer) Random Glucose Calcium Total Bilirubin AST ALT Alkaline Phosphatase Troponin I Total Protein Albumin Globulin Albumin/Globulin Ratio Urine Color Yellow Urine Clarity Clear Urine pH 6.0 Ur Specific [place] 1.021 Urine Protein 100 Urine Glucose (UA) >=500 Urine Ketones Trace Urine Blood Small Urine Nitrate Negative Urine Bilirubin Negative Urine Urobilinogen 0.2-1.0 Ur Leukocyte Esterase Neg Urine RBC (Auto) 1 Urine Microscopic WBC < 1 Assessment & Plan - Assessment and Plan (Free Text) Assessment: 73 y/o M with a PMHx of CAD, HTN, DM, HLD and CHF admitted for evaluation and management of bilateral pneumonia and hyperglycemia. PLAN: >Community Acquired Pneumonia --Afebrile, no leukocytosis, Stable --CXR: RLL infiltrate, LLL infiltrate and L pleural effusion. --Urine Ag's for Legionella and Strep pneumo were ordered. --Serum pro-calcitonin --IV Ceftriaxone and IV Azithromycin daily >Diabetes Mellitus 2 --Chronic --Not on meds. --Insulin Sliding scale --Considering starting PO meds (metformin) --Hemoglobin A1c ordered --Consistent Carbohydrate Diet >CHF, systolic/Hx of CAD --Echocardio gram on 04/13/18: LVEF 20-25%, moderate tricuspid regurgitation, moderate pulm HTN. --Home meds resumed: Lasix 40mg PO daily, Aspirin and Plavix. --Pro-BNP ordered >HTN --Home meds resumed >HLD --Home meds resumed >DVT Prophylaxis --SCD's --Lovenox 40mg SC daily Case discussed with Dr Wes Winslow PGY-2 - Date & Time Date: 05/31/18 Time: 19:30 <Akilah Harvey - Last Filed: 06/02/18 20:42> Results - Vital Signs Recent Vital Signs: Last Vital Signs Temp 97.7 F 06/02/18 16:50 Pulse 79 06/02/18 16:50 Resp 20 06/02/18 16:50 BP 143/90 06/02/18 16:50 Pulse Ox 98 06/02/18 16:50 - Labs Result Diagrams: 06/02/18 08:08 06/02/18 16:46 Labs: Laboratory Results - last 24 hr 05/31/18 05/31/18 05/31/18 18:15 19:36 20:47 WBC RBC Hgb Hct MCV MCH MCHC RDW Plt Count Sodium Potassium Chloride Carbon Dioxide Anion Gap BUN Creatinine Est GFR ( Amer) Est GFR (Non-Af Amer) POC Glucose (mg/dL) 190 H 279 H Random Glucose Calcium Ur Strep pneumoniae Ag Not detected 06/01/18 06/02/18 06/02/18 22:11 05:32 08:08 WBC 5.8 RBC 4.21 L Hgb 12.3 Hct 37.9 MCV 90.0 MCH 29.2 MCHC 32.5 L RDW 14.4 Plt Count 228 Sodium Potassium Chloride Carbon Dioxide Anion Gap BUN Creatinine Est GFR ( Amer) Est GFR (Non-Af Amer) POC Glucose (mg/dL) 172 H 205 H Random Glucose Calcium Ur Strep pneumoniae Ag 06/02/18 06/02/18 06/02/18 08:08 11:40 16:21 WBC RBC Hgb Hct MCV MCH MCHC RDW Plt Count Sodium 135 Potassium 2.9 L Chloride 96 L Carbon Dioxide 27 Anion Gap 15 BUN 22 H Creatinine 0.8 Est GFR ( Amer) > 60 Est GFR (Non-Af Amer) > 60 POC Glucose (mg/dL) 172 H 170 H Random Glucose 181 H Calcium 7.7 L Ur Strep pneumoniae Ag 06/02/18 16:46 WBC RBC Hgb Hct MCV MCH MCHC RDW Plt Count Sodium 137 Potassium 4.5 Chloride 97 L Carbon Dioxide 28 Anion Gap 17 BUN 24 H Creatinine 0.9 Est GFR ( Amer) > 60 Est GFR (Non-Af Amer) > 60 POC Glucose (mg/dL) Random Glucose 210 H Calcium 8.3 L Ur Strep pneumoniae Ag Attending/Attestation - Attestation I have personally seen and examined this patient.: Yes I have fully participated in the care of the patient.: Yes I have reviewed all pertinent clinical information: Yes Notes (Text): 06/02/18 20:41 agree with findings and plan as above.
[2018-05-31] MEDS: guaiFENesin-DM 600-30 mg ER Tab PO SCH (21:00)
[2018-05-31] MEDS: Insulin Lispro (humaLOG) 100 Units/ml Inj SC SCH (22:29)
[2018-05-31] MEDS ORDERED: Insulin Lispro (humaLOG) 100 Units/ml Inj SC SCH (23:00)
[2018-06-01 06:18] LABS: HEMOGLOBIN 12.8 g/dL (12.0-18.0); MEAN CELL VOLUME 88.7 fl (80.0-94.0); MEAN CORPUSCULAR HEMOGLOBIN 29.7 pg (27.0-31.0); MEAN CORPUSCULAR HGB CONC 33.5 g/dL (33.0-37.0); RBC 4.32 Mil/uL (4.40-5.90); RED CELL DISTRIBUTION WIDTH 14.3 % (11.5-14.5); WHITE BLOOD COUNT 6.8 K/uL (4.8-10.8)
[2018-06-01 06:32] LABS: BLOOD UREA NITROGEN 20 mg/dl (9-20); CALCIUM 7.8 mg/dL (8.4-10.2); GFR NON-AFRICAN AMERICAN > 60
[2018-06-01 06:33] LABS: B-TYPE NATRIURETIC PEPTIDE 14300 pg/ml (0-900)
[2018-06-01] MEDS ORDERED: Sodium Chloride 0.9% 500 ML IV SCH (06:45)
[2018-06-01] MEDS: Azithromycin 500 MG in Sodium Chloride 0.9% 250 ML IVPB SCH (08:28)
[2018-06-01] MEDS: Enoxaparin 40 mg Syringe SC SCH (08:30)
[2018-06-01] MEDS: guaiFENesin-DM 600-30 mg ER Tab PO SCH ×2 (08:30→16:36)
[2018-06-01] MEDS: Insulin Lispro (humaLOG) 100 Units/ml Inj SC SCH ×4 (08:34→23:36)
--- NOTE | 2018-06-01 10:25 | CP.PCM.PN ---
<Jenni Joe - Last Filed: 06/01/18 15:47> Subjective - Date & Time of Evaluation Date of Evaluation: 06/01/18 Time of Evaluation: 10:25 - Subjective Subjective: Patient seen and examined at bedside. He reports feeling better as compared to when he came in. Had a bowel movement over night. He has good appetite and has been eating well. Patient reports productive cough of green sputum. Denies fevers, chills, abdominal pain, nausea, vomiting, and diarrhea. Objective - Vital Signs/Intake and Output Vital Signs (last 24 hours): Temp Pulse Resp BP Pulse Ox 97.6 F 76 20 160/88 H 95 06/01/18 08:17 06/01/18 08:32 06/01/18 08:17 06/01/18 08:32 06/01/18 08:17 - Medications Medications: Current Medications Acetaminophen (Tylenol 325mg Tab) 650 mg PO Q6 PRN PRN Reason: Fever >100.4 F Acetaminophen (Tylenol 325mg Tab) 650 mg PO Q6 PRN PRN Reason: Pain, moderate (4-7) Aspirin (Aspirin Chewable) 81 mg PO DAILY [facility] Last Admin: 06/01/18 08:32 Dose: 81 mg Atorvastatin Calcium (Lipitor) 40 mg PO HS [facility] Last Admin: 05/31/18 22:05 Dose: 40 mg Carvedilol (Coreg) 6.25 mg PO Q12 [facility] Last Admin: 06/01/18 08:31 Dose: 6.25 mg Clopidogrel Bisulfate (Plavix) 75 mg PO DAILY [facility] Last Admin: 06/01/18 08:31 Dose: 75 mg Dextrose (Dextrose 50% Inj) 0 ml IV STAT PRN; Protocol PRN Reason: Hypoglycemia Protocol Dextrose (Glutose 15) 0 gm PO ONCE PRN; Protocol PRN Reason: Hypoglycemia Protocol Enoxaparin Sodium (Lovenox) 40 mg SC DAILY [facility]; Protocol Last Admin: 06/01/18 08:30 Dose: 40 mg Furosemide (Lasix) 40 mg PO DAILY [facility] Last Admin: 06/01/18 08:32 Dose: 40 mg Glipizide (Glucotrol) 5 mg PO ACB [facility] Glucagon (Glucagen Diagnostic Kit) 0 mg IM STAT PRN; Protocol PRN Reason: Hypoglycemia Protocol Guaifenesin/Dextromethorphan (Mucinex-Dm 600-30 Mg) 1 tab PO BID [facility] Last Admin: 06/01/18 08:30 Dose: 1 tab Azithromycin 500 mg/ Sodium (Chloride) 250 mls @ 250 mls/hr IVPB DAILY [facility]; Protocol Last Admin: 06/01/18 08:28 Dose: 250 mls/hr Ceftriaxone Sodium 1 gm/ (Sodium Chloride) 100 mls @ 100 mls/hr IVPB DAILY [facility]; Protocol Last Admin: 06/01/18 08:25 Dose: 100 mls/hr Insulin Human Lispro (Humalog) 0 units SC ACCU-CHECK [facility]; Protocol Last Admin: 06/01/18 08:34 Dose: 3 units Losartan Potassium (Cozaar) 12.5 mg PO DAILY [facility] Last Admin: 06/01/18 08:32 Dose: 12.5 mg Metformin HCl (Glucophage) 500 mg PO BIDWM [facility] - Labs Labs: 06/01/18 05:30 06/01/18 05:30 PT 13.3 Seconds (9.8-13.1) H 05/31/18 13:39 INR 1.2 05/31/18 13:39 APTT 33.0 Seconds (25.6-37.1) 05/31/18 13:39 - Constitutional Appears: Non-toxic, No Acute Distress - ENT Exam ENT Exam: Mucous Membranes Moist - Respiratory Exam Respiratory Exam: Rales (bilateral lower lung sharma. ). absent: Accessory Muscle Use, Chest Wall Tenderness, Decreased Breath Sounds, Prolonged Expiratory Phase, Rhonchi, Wheezes, Respiratory Distress, Stridor - Cardiovascular Exam Cardiovascular Exam: +S1, +S2 Additional comments: Large Scar present at midline from previous cardiac surgery. - GI/Abdominal Exam GI & Abdominal Exam: Soft, Normal Bowel Sounds. absent: Distended, Firm, Guarding, Rigid, Tenderness - Extremities Exam Extremities Exam: Normal Capillary Refill, Normal Inspection. absent: Calf Tenderness, Pedal Edema, Tenderness - Neurological Exam Neurological Exam: Alert, Awake, Oriented x3 - Skin Skin Exam: Dry, Intact, Normal Color, Warm Assessment and Plan (1) Full code status Status: Acute - Assessment and Plan (Free Text) Assessment: 73 y/o M with a PMHx of CAD, HTN, DM, HLD and CHF admitted for evaluation and management of bilateral pneumonia and hyperglycemia. Plan: >Community Acquired Pneumonia --Afebrile, no leukocytosis, Stable -- Patient saturating 89% on Room air. Saturates 97% on 2 L NC. --CXR: RLL infiltrate, LLL infiltrate and L pleural effusion. -- Repeat CXR 06/01/18: prominent lower lobe infiltrates. --Urine Ag's for Legionella (negative) and Strep pneumo were ordered. --Serum pro-calcitonin - Low --IV Ceftriaxone and IV Azithromycin daily (day 2) >Diabetes Mellitus 2 --Chronic --Not on meds. --Insulin Sliding scale --Considering starting PO meds (metformin) --Hemoglobin A1c - 13.2 --Consistent Carbohydrate Diet -- start Metformin 500mg BID and Glucatrol 5 mg daily. >CHF, systolic/Hx of CAD --Echocardio gram on 04/13/18: LVEF 20-25%, moderate tricuspid regurgitation, moderate pulm HTN. --Home meds resumed: Lasix 40mg PO daily, Aspirin and Plavix. --Pro-BNP - 40392 >HTN --Home meds resumed >HLD --Home meds resumed >DVT Prophylaxis --SCD's --Lovenox 40mg SC daily <Saba Barnett - Last Filed: 06/01/18 16:03> Objective - Vital Signs/Intake and Output Vital Signs (last 24 hours): Temp Pulse Resp BP Pulse Ox 97.6 F 76 20 160/88 H 95 06/01/18 08:17 06/01/18 08:32 06/01/18 08:17 06/01/18 09:57 06/01/18 08:17 - Medications Medications: Current Medications Acetaminophen (Tylenol 325mg Tab) 650 mg PO Q6 PRN PRN Reason: Fever >100.4 F Acetaminophen (Tylenol 325mg Tab) 650 mg PO Q6 PRN PRN Reason: Pain, moderate (4-7) Aspirin (Aspirin Chewable) 81 mg PO DAILY [facility] Last Admin: 06/01/18 08:32 Dose: 81 mg Atorvastatin Calcium (Lipitor) 40 mg PO HS [facility] Last Admin: 05/31/18 22:05 Dose: 40 mg Carvedilol (Coreg) 6.25 mg PO Q12 [facility] Last Admin: 06/01/18 08:31 Dose: 6.25 mg Clopidogrel Bisulfate (Plavix) 75 mg PO DAILY [facility] Last Admin: 06/01/18 08:31 Dose: 75 mg Dextrose (Dextrose 50% Inj) 0 ml IV STAT PRN; Protocol PRN Reason: Hypoglycemia Protocol Dextrose (Glutose 15) 0 gm PO ONCE PRN; Protocol PRN Reason: Hypoglycemia Protocol Enoxaparin Sodium (Lovenox) 40 mg SC DAILY [facility]; Protocol Last Admin: 06/01/18 08:30 Dose: 40 mg Furosemide (Lasix) 40 mg PO DAILY [facility] Last Admin: 06/01/18 08:32 Dose: 40 mg Glipizide (Glucotrol) 5 mg PO ACB [facility] Glucagon (Glucagen Diagnostic Kit) 0 mg IM STAT PRN; Protocol PRN Reason: Hypoglycemia Protocol Guaifenesin/Dextromethorphan (Mucinex-Dm 600-30 Mg) 1 tab PO BID [facility] Last Admin: 06/01/18 08:30 Dose: 1 tab Azithromycin 500 mg/ Sodium (Chloride) 250 mls @ 250 mls/hr IVPB DAILY [facility]; Protocol Last Admin: 06/01/18 08:28 Dose: 250 mls/hr Ceftriaxone Sodium 1 gm/ (Sodium Chloride) 100 mls @ 100 mls/hr IVPB DAILY [facility]; Protocol Last Admin: 06/01/18 08:25 Dose: 100 mls/hr Insulin Human Lispro (Humalog) 0 units SC ACCU-CHECK [facility]; Protocol Last Admin: 06/01/18 12:58 Dose: 4 units Losartan Potassium (Cozaar) 12.5 mg PO DAILY [facility] Last Admin: 06/01/18 08:32 Dose: 12.5 mg Metformin HCl (Glucophage) 500 mg PO BIDWM [facility] Last Admin: 06/01/18 12:57 Dose: 500 mg - Labs Labs: 06/01/18 05:30 06/01/18 05:30 PT 13.3 Seconds (9.8-13.1) H 05/31/18 13:39 INR 1.2 05/31/18 13:39 APTT 33.0 Seconds (25.6-37.1) 05/31/18 13:39 Attending/Attestation - Attestation I have personally seen and examined this patient.: Yes I have fully participated in the care of the patient.: Yes I have reviewed all pertinent clinical information, including history, physical exam and plan: Yes Notes (Text): Pneumonia prob bacterial - cont IV Ceftriaxone and Azithro DM type II with Hyperglycemia likely due to noncompliance - start Glucotrol and Metformin Chronic CHF , systolic and distolic dysfunction, EF 25% cont Lasix, Losartan and Coreg
--- NOTE | 2018-06-01 11:50 | RAD ---
Date of service: 06/01/2018 HISTORY: Cough COMPARISON: 04/13/2018 and 05/31/2018 serial chest radiographs TECHNIQUE: Chest PA and lateral FINDINGS: LUNGS: Progressive consolidative changes at both lung bases. PLEURA: More conspicuous bilateral pleural effusions. CARDIOVASCULAR: Atherosclerotic calcifications identified primarily aortic arch. Stable pulmonary vascular congestion OSSEOUS STRUCTURES: No significant abnormalities. VISUALIZED UPPER ABDOMEN: Normal. OTHER FINDINGS: None. IMPRESSION: Greater degree of prominent/conspicuity of lower lobe infiltrates and pleural effusions which may be technical. The prior study implied portable technique. The current study uses conventional two-view technique.
[2018-06-01] MEDS ORDERED: Sodium Chloride 3% for Inhalation 4 ML VIAL.NEB IH PRN (14:25)
[2018-06-02] MEDS: Enoxaparin 40 mg Syringe SC SCH (08:20)
[2018-06-02] MEDS: guaiFENesin-DM 600-30 mg ER Tab PO SCH ×2 (08:21→17:06)
[2018-06-02] MEDS: Insulin Lispro (humaLOG) 100 Units/ml Inj SC SCH ×4 (08:22→23:21)
[2018-06-02 08:29] VITALS: RESP 20
[2018-06-02 08:30] LABS: HEMOGLOBIN 12.3 g/dL (12.0-18.0); MEAN CORPUSCULAR HEMOGLOBIN 29.2 pg (27.0-31.0); MEAN CORPUSCULAR HGB CONC 32.5 g/dL (33.0-37.0); RBC 4.21 Mil/uL (4.40-5.90); RED CELL DISTRIBUTION WIDTH 14.4 % (11.5-14.5); WHITE BLOOD COUNT 5.8 K/uL (4.8-10.8)
[2018-06-02] MEDS: Azithromycin 500 MG in Sodium Chloride 0.9% 250 ML IVPB SCH (08:30)
[2018-06-02 08:45] LABS: BLOOD UREA NITROGEN 22 mg/dl (9-20); CALCIUM 7.7 mg/dL (8.4-10.2); GFR NON-AFRICAN AMERICAN > 60
[2018-06-02] MEDS ORDERED: Potassium Chloride 20 mEq ER Tab PO ONE (08:59)
[2018-06-02] MEDS ORDERED: Potassium CL 10 MEQ/50 ML 50 ML IVPB SCH (09:00)
--- NOTE | 2018-06-02 10:50 | CP.PCM.PN ---
Subjective - Date & Time of Evaluation Date of Evaluation: 06/02/18 Time of Evaluation: 10:30 - Subjective Subjective: Patient seen and examined at bedside. Patient reports he is dypsneic at times and has been coughing a lot. He states that he still has good appetite and no troubles going to the restroom. Denies chest pain, nausea, vomiting, lower leg s welling, abdominal pain or diarrhea. Objective - Vital Signs/Intake and Output Vital Signs (last 24 hours): Temp Pulse Resp BP Pulse Ox 97.5 F L 64 20 134/66 100 06/02/18 08:28 06/02/18 08:28 06/02/18 08:28 06/02/18 08:28 06/02/18 08:28 - Medications Medications: Current Medications Acetaminophen (Tylenol 325mg Tab) 650 mg PO Q6 PRN PRN Reason: Fever >100.4 F Acetaminophen (Tylenol 325mg Tab) 650 mg PO Q6 PRN PRN Reason: Pain, moderate (4-7) Aspirin (Aspirin Chewable) 81 mg PO DAILY [facility] Last Admin: 06/02/18 08:21 Dose: 81 mg Atorvastatin Calcium (Lipitor) 40 mg PO HS [facility] Last Admin: 06/01/18 22:02 Dose: 40 mg Carvedilol (Coreg) 6.25 mg PO Q12 [facility] Last Admin: 06/02/18 08:20 Dose: 6.25 mg Clopidogrel Bisulfate (Plavix) 75 mg PO DAILY [facility] Last Admin: 06/02/18 08:22 Dose: 75 mg Dextrose (Dextrose 50% Inj) 0 ml IV STAT PRN; Protocol PRN Reason: Hypoglycemia Protocol Dextrose (Glutose 15) 0 gm PO ONCE PRN; Protocol PRN Reason: Hypoglycemia Protocol Enoxaparin Sodium (Lovenox) 40 mg SC DAILY [facility]; Protocol Last Admin: 06/02/18 08:20 Dose: 40 mg Furosemide (Lasix) 40 mg PO DAILY [facility] Last Admin: 06/02/18 08:24 Dose: Not Given Glipizide (Glucotrol) 5 mg PO ACB [facility] Last Admin: 06/02/18 08:21 Dose: 5 mg Glucagon (Glucagen Diagnostic Kit) 0 mg IM STAT PRN; Protocol PRN Reason: Hypoglycemia Protocol Guaifenesin/Dextromethorphan (Mucinex-Dm 600-30 Mg) 1 tab PO BID [facility] Last Admin: 06/02/18 08:21 Dose: 1 tab Azithromycin 500 mg/ Sodium (Chloride) 250 mls @ 250 mls/hr IVPB DAILY [facility]; Protocol Last Admin: 06/02/18 08:30 Dose: 250 mls/hr Ceftriaxone Sodium 1 gm/ (Sodium Chloride) 100 mls @ 100 mls/hr IVPB DAILY [facility]; Protocol Last Admin: 06/02/18 09:31 Dose: 100 mls/hr Potassium Chloride (Potassium Cl 10meq/50ml Sterile Water) 50 mls @ 50 mls/hr IVPB Q1 [facility] Stop: 06/02/18 11:59 Insulin Human Lispro (Humalog) 0 units SC ACCU-CHECK [facility]; Protocol Last Admin: 06/02/18 08:22 Dose: 3 units Losartan Potassium (Cozaar) 12.5 mg PO DAILY [facility] Last Admin: 06/02/18 08:21 Dose: 12.5 mg Metformin HCl (Glucophage) 500 mg PO BIDWM [facility] Last Admin: 06/02/18 08:21 Dose: 500 mg - Labs Labs: 06/02/18 08:08 06/02/18 08:08 PT 13.3 Seconds (9.8-13.1) H 05/31/18 13:39 INR 1.2 05/31/18 13:39 APTT 33.0 Seconds (25.6-37.1) 05/31/18 13:39 - Constitutional Appears: Non-toxic, No Acute Distress - Eye Exam Eye Exam: Normal appearance - ENT Exam ENT Exam: Mucous Membranes Moist - Respiratory Exam Respiratory Exam: Clear to Ausculation Bilateral, Rales (mild lower bilateral crackles present on exam ), NORMAL BREATHING PATTERN. absent: Accessory Muscle Use, Chest Wall Tenderness, Decreased Breath Sounds, Prolonged Expiratory Phase, Rhonchi, Wheezes, Respiratory Distress, Stridor - Cardiovascular Exam Cardiovascular Exam: REGULAR RHYTHM, +S1, +S2, Murmur - GI/Abdominal Exam GI & Abdominal Exam: Soft, Normal Bowel Sounds. absent: Distended, Firm, Guarding, Rigid, Tenderness, Rebound - Extremities Exam Extremities Exam: Normal Capillary Refill, Normal Inspection. absent: Calf Tenderness, Pedal Edema, Tenderness - Neurological Exam Neurological Exam: Alert, Awake - Skin Skin Exam: Dry, Intact, Normal Color, Warm Assessment and Plan (1) Full code status Status: Acute - Assessment and Plan (Free Text) Assessment: 73 y/o M with a PMHx of CAD, HTN, DM, HLD and CHF admitted for evaluation and management of multifocal community acquired pneumonia and hyperglycemia. Plan: >Community Acquired multifocal Pneumonia --Afebrile, no leukocytosis, Stable -- Saturating 96%-100% on 2 L NC. -- CXR 06/01/18: prominent lower lobe infiltrates. --Urine Ag's for Legionella (negative) and Strep pneumo were ordered. --Serum pro-calcitonin - Low --IV Ceftriaxone and IV Azithromycin daily (day 3) >CHF, systolic/Hx of CAD --Echocardio gram on 04/13/18: LVEF 20-25%, moderate tricuspid regurgitation, moderate pulm HTN. --Home meds resumed: Lasix 40mg PO daily, Aspirin and Plavix. --Pro-BNP - 31377 -- Discussed with patient the need for AICD given his condition. Patient will need to follow up for AICD placement. >Diuretic induced Hypokalemia -2.9 secondary to Lasix 40mg IVP yesterday. - Replete with KDur 40mEq po and 3 Runs of KCL 10mEq - Follow BMP >Diabetes Mellitus 2 --Chronic, uncontrolled --Not on meds at home --Insulin Sliding scale --Hemoglobin A1c - 13.2 --Consistent Carbohydrate Diet -- Continue Metformin 500mg BID and Glucatrol 5 mg daily. >HTN uncontrolled --Home meds resumed >HLD --Home meds resumed >DVT Prophylaxis --SCD's --Lovenox 40mg SC daily
[2018-06-02] MEDS: Potassium CL 10mEq/100ml 100 ML IVPB SCH ×3 (12:29→17:02)
[2018-06-02] MEDS ORDERED: Potassium Chloride 20 mEq/15 ml LIQ UD PO ONE (15:32)
[2018-06-02 17:54] LABS: BLOOD UREA NITROGEN 24 mg/dl (9-20); CALCIUM 8.3 mg/dL (8.4-10.2); GFR NON-AFRICAN AMERICAN > 60
[2018-06-03 07:09] LABS: HEMOGLOBIN 13.1 g/dL (12.0-18.0); MEAN CELL VOLUME 89.2 fl (80.0-94.0); MEAN CORPUSCULAR HEMOGLOBIN 29.3 pg (27.0-31.0); MEAN CORPUSCULAR HGB CONC 32.8 g/dL (33.0-37.0); RBC 4.47 Mil/uL (4.40-5.90); RED CELL DISTRIBUTION WIDTH 14.5 % (11.5-14.5); WHITE BLOOD COUNT 5.4 K/uL (4.8-10.8)
[2018-06-03 07:19] LABS: BLOOD UREA NITROGEN 25 mg/dl (9-20); CALCIUM 8.2 mg/dL (8.4-10.2); GFR NON-AFRICAN AMERICAN > 60
--- NOTE | 2018-06-03 07:57 | CP.PCM.DIS ---
Provider - Provider Date of Admission: 05/31/18 16:59 Attending physician: Akilah Harvey DO Consults: 05/31/18 22:51 Social Work Referral Routine Comment: lives alone Physician Instructions: Reason For Exam: lives alone Hospital Course - Lab Results Lab Results: Micro Results 05/31/18 18:26 Blood-Venous Blood Culture - Preliminary NO GROWTH AFTER 48 HOURS 05/31/18 17:45 Blood-Venous Blood Culture - Preliminary NO GROWTH AFTER 48 HOURS Most Recent Lab Values WBC 5.4 K/uL (4.8-10.8) 06/03/18 06:35 RBC 4.47 Mil/uL (4.40-5.90) 06/03/18 06:35 Hgb 13.1 g/dL (12.0-18.0) 06/03/18 06:35 Hct 39.9 % (35.0-51.0) 06/03/18 06:35 MCV 89.2 fl (80.0-94.0) 06/03/18 06:35 MCH 29.3 pg (27.0-31.0) 06/03/18 06:35 MCHC 32.8 g/dL (33.0-37.0) L 06/03/18 06:35 RDW 14.5 % (11.5-14.5) 06/03/18 06:35 Plt Count 229 K/uL (130-400) 06/03/18 06:35 MPV 10.5 fl (7.2-11.7) 05/31/18 13:39 Neut % (Auto) 74.7 % (50.0-75.0) 05/31/18 13:39 Lymph % (Auto) 18.8 % (20.0-40.0) L 05/31/18 13:39 [place] % (Auto) 5.8 % (0.0-10.0) 05/31/18 13:39 Eos % (Auto) 0.4 % (0.0-4.0) 05/31/18 13:39 Baso % (Auto) 0.3 % (0.0-2.0) 05/31/18 13:39 Neut # (Auto) 5.4 K/uL (1.8-7.0) 05/31/18 13:39 Lymph # (Auto) 1.3 K/uL (1.0-4.3) 05/31/18 13:39 [place] # (Auto) 0.4 K/uL (0.0-0.8) 05/31/18 13:39 Eos # (Auto) 0.0 K/uL (0.0-0.7) 05/31/18 13:39 Baso # (Auto) 0.0 K/uL (0.0-0.2) 05/31/18 13:39 PT 13.3 Seconds (9.8-13.1) H 05/31/18 13:39 INR 1.2 05/31/18 13:39 APTT 33.0 Seconds (25.6-37.1) 05/31/18 13:39 pO2 23 mm/Hg (30-55) L 05/31/18 16:10 ABG Carboxyhemoglobin 1.4 % (0.5-1.5) 05/31/18 16:10 POC ABG HHb (Measured) 63.9 % (0.0-5.0) H 05/31/18 16:10 ABG Methemoglobin 3.1 % (0.0-3.0) H 05/31/18 16:10 VBG pH 7.34 (7.32-7.43) 05/31/18 16:10 VBG pCO2 49 mmHg (40-60) 05/31/18 16:10 VBG HCO3 22.9 mmol/L 05/31/18 16:10 VBG O2 Sat (Calc) 33.0 % (40-65) L 05/31/18 16:10 VBG Base Excess -0.1 mmol/L (0.0-2.0) L 05/31/18 16:10 VBG Hgb O2 Saturation 31.5 % (95.0-98.0) L 05/31/18 16:10 Hemoglobin 14.7 g/dL (11.7-17.4) 05/31/18 16:10 Sodium 136 mmol/l (132-148) 06/03/18 06:35 Potassium 4.5 MMOL/L (3.6-5.0) 06/03/18 06:35 Chloride 98 mmol/L (98-107) 06/03/18 06:35 Carbon Dioxide 29 mmol/L (22-30) 06/03/18 06:35 Anion Gap 14 (10-20) 06/03/18 06:35 BUN 25 mg/dl (9-20) H 06/03/18 06:35 Creatinine 0.9 mg/dl (0.8-1.5) 06/03/18 06:35 Est GFR ( Amer) > 60 06/03/18 06:35 Est GFR (Non-Af Amer) > 60 06/03/18 06:35 POC Glucose (mg/dL) 194 mg/dL (65-110) H 06/03/18 05:46 Random Glucose 199 mg/dL (75-110) H 06/03/18 06:35 Hemoglobin A1c 13.2 % (4.2-6.5) H 06/01/18 05:30 Calcium 8.2 mg/dL (8.4-10.2) L 06/03/18 06:35 Total Bilirubin 0.9 mg/dl (0.2-1.3) 05/31/18 13:39 AST 42 U/L (17-59) 05/31/18 13:39 ALT 43 U/L (21-72) 05/31/18 13:39 Alkaline Phosphatase 122 U/L (38-126) 05/31/18 13:39 Troponin I 0.0180 ng/mL (0.00-0.120) 05/31/18 13:39 NT-Pro-B Natriuret Pep 27951 pg/ml (0-900) H 06/01/18 05:30 Total Protein 7.9 G/DL (6.3-8.2) 05/31/18 13:39 Albumin 4.2 g/dL (3.5-5.0) 05/31/18 13:39 Globulin 3.7 gm/dL (2.2-3.9) 05/31/18 13:39 Albumin/Globulin Ratio 1.1 (1.0-2.1) 05/31/18 13:39 Procalcitonin 0.07 NG/ML (0.19-0.49) L 06/01/18 05:30 Urine Color Yellow (YELLOW) 05/31/18 14:00 Urine Clarity Clear (Clear) 05/31/18 14:00 Urine pH 6.0 (5.0-8.0) 05/31/18 14:00 Ur Specific [place] 1.021 (1.003-1.030) 05/31/18 14:00 Urine Protein 100 mg/dL (NEGATIVE) 05/31/18 14:00 Urine Glucose (UA) >=500 mg/dL (NEGATIVE) 05/31/18 14:00 Urine Ketones Trace mg/dL (NEGATIVE) 05/31/18 14:00 Urine Blood Small (NEGATIVE) 05/31/18 14:00 Urine Nitrate Negative (NEGATIVE) 05/31/18 14:00 Urine Bilirubin Negative (NEGATIVE) 05/31/18 14:00 Urine Urobilinogen 0.2-1.0 mg/dL (0.2-1.0) 05/31/18 14:00 Ur Leukocyte Esterase Neg [place]/uL (Negative) 05/31/18 14:00 Urine RBC (Auto) 1 /hpf (0-3) 05/31/18 14:00 Urine Microscopic WBC < 1 /hpf (0-5) 05/31/18 14:00 Ur L.pneumophila Ag Negative (NEGATIVE) 05/31/18 20:47 Ur Strep pneumoniae Ag Not detected (Not Detected) 05/31/18 20:47 Discharge Exam - Head Exam Head Exam: ATRAUMATIC, NORMAL INSPECTION Discharge Plan - Follow Up Plan Condition: GOOD Disposition: HOME/ ROUTINE Referrals: [facility] [place] [Outside]
--- NOTE | 2018-06-03 08:28 | CP.PCM.DIS ---
Provider - Provider Date of Admission: 05/31/18 16:59 Attending physician: Akilah Harvey DO Primary care physician: Dr. Alie Costa- [facility] Consults: 05/31/18 22:51 Social Work Referral Routine Comment: lives alone Physician Instructions: Reason For Exam: lives alone Time Spent in preparation of Discharge (in minutes): 30 Diagnosis - Discharge Diagnosis (1) Community acquired pneumonia Status: Acute Comment: --Afebrile, no leukocytosis, Stable. --CXR: RLL infiltrate, LLL in filtrate and L pleural effusion. --Urine Ag's Legionella was negative and Strep pneumo was negative. --Serum pro-calcitonin- was reported as low (0.7). --IV Ceftriaxone and IV Azithromycin was given for a total of 3 days. (2) Diabetes mellitus type 2 in nonobese Status: Acute Comment: Was uncontrolled. --Not on medications at home. --Patient started on metformin 500mg po BID and Glucotrol 5mg daily (will continue these medications upon discharge). --Hemoglobin A1c- 13.2 (3) Hypertension Status: Acute Comment: continue losartan 5mg daily (4) Hyperlipidemia Status: Acute Comment: - Continue atorvastatin 40mg po HS (5) CAD (coronary artery disease) Status: Acute Comment: --Echocardio gram on 04/13/18: LVEF 20-25%, moderate tricuspid regurgitation, moderate pulm HTN. --Home meds resumed: Lasix 40mg PO daily, Aspirin, Plavix, statin. --Pro-BNP- 16793. Given patient's EF: 20-25%, patient needs an AICD placement. Patient was told of the importance of the placement of AICD and he states he understood and will return to [place] where he had the CABG done. (6) DVT prophylaxis Status: Acute (7) Full code status Status: Acute Hospital Course - Lab Results Lab Results: Micro Results 05/31/18 18:26 Blood-Venous Blood Culture - Preliminary NO GROWTH AFTER 48 HOURS 05/31/18 17:45 Blood-Venous Blood Culture - Preliminary NO GROWTH AFTER 48 HOURS Most Recent Lab Values WBC 5.4 K/uL (4.8-10.8) 06/03/18 06:35 RBC 4.47 Mil/uL (4.40-5.90) 06/03/18 06:35 Hgb 13.1 g/dL (12.0-18.0) 06/03/18 06:35 Hct 39.9 % (35.0-51.0) 06/03/18 06:35 MCV 89.2 fl (80.0-94.0) 06/03/18 06:35 MCH 29.3 pg (27.0-31.0) 06/03/18 06:35 MCHC 32.8 g/dL (33.0-37.0) L 06/03/18 06:35 RDW 14.5 % (11.5-14.5) 06/03/18 06:35 Plt Count 229 K/uL (130-400) 06/03/18 06:35 MPV 10.5 fl (7.2-11.7) 05/31/18 13:39 Neut % (Auto) 74.7 % (50.0-75.0) 05/31/18 13:39 Lymph % (Auto) 18.8 % (20.0-40.0) L 05/31/18 13:39 [place] % (Auto) 5.8 % (0.0-10.0) 05/31/18 13:39 Eos % (Auto) 0.4 % (0.0-4.0) 05/31/18 13:39 Baso % (Auto) 0.3 % (0.0-2.0) 05/31/18 13:39 Neut # (Auto) 5.4 K/uL (1.8-7.0) 05/31/18 13:39 Lymph # (Auto) 1.3 K/uL (1.0-4.3) 05/31/18 13:39 Spencer # (Auto) 0.4 K/uL (0.0-0.8) 05/31/18 13:39 Eos # (Auto) 0.0 K/uL (0.0-0.7) 05/31/18 13:39 Baso # (Auto) 0.0 K/uL (0.0-0.2) 05/31/18 13:39 PT 13.3 Seconds (9.8-13.1) H 05/31/18 13:39 INR 1.2 05/31/18 13:39 APTT 33.0 Seconds (25.6-37.1) 05/31/18 13:39 pO2 23 mm/Hg (30-55) L 05/31/18 16:10 ABG Carboxyhemoglobin 1.4 % (0.5-1.5) 05/31/18 16:10 POC ABG HHb (Measured) 63.9 % (0.0-5.0) H 05/31/18 16:10 ABG Methemoglobin 3.1 % (0.0-3.0) H 05/31/18 16:10 VBG pH 7.34 (7.32-7.43) 05/31/18 16:10 VBG pCO2 49 mmHg (40-60) 05/31/18 16:10 VBG HCO3 22.9 mmol/L 05/31/18 16:10 VBG O2 Sat (Calc) 33.0 % (40-65) L 05/31/18 16:10 VBG Base Excess -0.1 mmol/L (0.0-2.0) L 05/31/18 16:10 VBG Hgb O2 Saturation 31.5 % (95.0-98.0) L 05/31/18 16:10 Hemoglobin 14.7 g/dL (11.7-17.4) 05/31/18 16:10 Sodium 136 mmol/l (132-148) 06/03/18 06:35 Potassium 4.5 MMOL/L (3.6-5.0) 06/03/18 06:35 Chloride 98 mmol/L (98-107) 06/03/18 06:35 Carbon Dioxide 29 mmol/L (22-30) 06/03/18 06:35 Anion Gap 14 (10-20) 06/03/18 06:35 BUN 25 mg/dl (9-20) H 06/03/18 06:35 Creatinine 0.9 mg/dl (0.8-1.5) 06/03/18 06:35 Est GFR ( Amer) > 60 06/03/18 06:35 Est GFR (Non-Af Amer) > 60 06/03/18 06:35 POC Glucose (mg/dL) 194 mg/dL (65-110) H 06/03/18 05:46 Random Glucose 199 mg/dL (75-110) H 06/03/18 06:35 Hemoglobin A1c 13.2 % (4.2-6.5) H 06/01/18 05:30 Calcium 8.2 mg/dL (8.4-10.2) L 06/03/18 06:35 Total Bilirubin 0.9 mg/dl (0.2-1.3) 05/31/18 13:39 AST 42 U/L (17-59) 05/31/18 13:39 ALT 43 U/L (21-72) 05/31/18 13:39 Alkaline Phosphatase 122 U/L (38-126) 05/31/18 13:39 Troponin I 0.0180 ng/mL (0.00-0.120) 05/31/18 13:39 NT-Pro-B Natriuret Pep 15215 pg/ml (0-900) H 06/01/18 05:30 Total Protein 7.9 G/DL (6.3-8.2) 05/31/18 13:39 Albumin 4.2 g/dL (3.5-5.0) 05/31/18 13:39 Globulin 3.7 gm/dL (2.2-3.9) 05/31/18 13:39 Albumin/Globulin Ratio 1.1 (1.0-2.1) 05/31/18 13:39 Procalcitonin 0.07 NG/ML (0.19-0.49) L 06/01/18 05:30 Urine Color Yellow (YELLOW) 05/31/18 14:00 Urine Clarity Clear (Clear) 05/31/18 14:00 Urine pH 6.0 (5.0-8.0) 05/31/18 14:00 Ur Specific [place] 1.021 (1.003-1.030) 05/31/18 14:00 Urine Protein 100 mg/dL (NEGATIVE) 05/31/18 14:00 Urine Glucose (UA) >=500 mg/dL (NEGATIVE) 05/31/18 14:00 Urine Ketones Trace mg/dL (NEGATIVE) 05/31/18 14:00 Urine Blood Small (NEGATIVE) 05/31/18 14:00 Urine Nitrate Negative (NEGATIVE) 05/31/18 14:00 Urine Bilirubin Negative (NEGATIVE) 05/31/18 14:00 Urine Urobilinogen 0.2-1.0 mg/dL (0.2-1.0) 05/31/18 14:00 Ur Leukocyte Esterase Neg [place]/uL (Negative) 05/31/18 14:00 Urine RBC (Auto) 1 /hpf (0-3) 05/31/18 14:00 Urine Microscopic WBC < 1 /hpf (0-5) 05/31/18 14:00 Ur L.pneumophila Ag Negative (NEGATIVE) 05/31/18 20:47 Ur Strep pneumoniae Ag Not detected (Not Detected) 05/31/18 20:47 - Hospital Course Hospital Course: 73 y/o M with a PMHx of CAD, HTN, DM, HLD and CHF presented to ED complaining of nausea, dizziness and aggravating SOB admitted for CHF exacerbation and Community acquired multifocal pneumonia. Patient was consistently afebrile. Patient was given Ceftriaxone and Azithromycin for 3 days. Pt dypsnea is chronic and given patient's clinical improvement he is safe for discharge home. He was noted to have hyperglycemia upon admission ([phone]) and he was started on metformin and glucotrol during his stay. Of note, patient's Echocardiogram on 04/13/18: LVEF 20-25%, moderate tricuspid regurgitation, moderate pulm HTN. GIven patient's EF of 20-25%, patient was educated upon the importance of AICD placment. Patient reports he understood the importance and will follow up with [facility] in [place] where he had his CABG done. Patient will be following up in [facility] clinic. Discharge Exam - Head Exam Head Exam: ATRAUMATIC, NORMAL INSPECTION - Eye Exam Eye Exam: Normal appearance - ENT Exam ENT Exam: Mucous Membranes Moist - Respiratory Exam Respiratory Exam: Clear to PA & Lateral, NORMAL BREATHING PATTERN, UNREMARKABLE. absent: Accessory Muscle Use, Chest Wall Tenderness, Decreased Breath Sounds, Prolonged Expiratory Phase, Rales, Rhonchi, Wheezes, Respiratory Distress, Stridor - Cardiovascular Exam Cardiovascular Exam: REGULAR RHYTHM, +S1, +S2 Additional comments: Midline scar present on chest from previous CABG - GI/Abdominal Exam GI & Abdominal Exam: Normal Bowel Sounds, Soft, Unremarkable. absent: D iminished Bowel Sounds, Distended, Firm, Guarding, Mass, Organomegaly, Rebound, Rigid, Tenderness - Extremities Exam Extremities exam: normal capillary refill, normal inspection, pedal pulses present - Neurological Exam Neurological exam: Alert, Oriented x3 - Skin Skin Exam: Dry, Intact, Normal Color, Warm Discharge Plan - Discharge Medications Prescriptions: Aspirin [Aspirin Chewable] 81 mg PO DAILY 30 Days #30 chew Atorvastatin [Lipitor] 40 mg PO HS 30 Days #30 tab Carvedilol [Coreg] 6.25 mg PO Q12 30 Days #60 tab Clopidogrel [Plavix] 75 mg PO DAILY 30 Days #30 tab Furosemide [Lasix] 40 mg PO DAILY 30 Days #30 tab GlipiZIDE [Glucotrol] 5 mg PO ACB #30 tab Levofloxacin [Levaquin] 750 mg PO DAILY #5 tablet Losartan [Cozaar] 25 mg PO DAILY #30 tab metFORMIN [glucOPHAGE] 500 mg PO BIDWM #60 tab - Follow Up Plan Condition: GOOD Disposition: HOME/ ROUTINE Patient education suggested?: Yes Instructions: Medical Devices for Congestive Heart Failure (CHF), Heart Failure (DC), Pacemaker (DC), Pulmonary Edema (DC), Ascites (DC) Additional Instructions: [facility]. Patient educated that it is important to follow up with [facility] regarding low EF on ECHO and need for AICD. billy con Dr Dubose jun 09 a las 3:40pm en [facility] [place] tener que hacer billy con cardiologo para seguir con tratamiento Referrals: [facility] [Outside] Violet Dubose MD [Provisional Staff] -
[2018-06-03 08:46] VITALS: TEMP 97.5
[2018-06-03] MEDS: Insulin Lispro (humaLOG) 100 Units/ml Inj SC SCH ×3 (09:34→16:42)
[2018-06-03] MEDS: guaiFENesin-DM 600-30 mg ER Tab PO SCH ×2 (09:35→16:42)
[2018-06-03] MEDS: Enoxaparin 40 mg Syringe SC SCH (09:35)
[2018-06-03] MEDS: Azithromycin 500 MG in Sodium Chloride 0.9% 250 ML IVPB SCH (11:45)
[2018-06-03 16:00] VITALS: BP 146/99; PULSE 76; O2SAT 96
== END 2018-06-03 17:09 | disposition home or self-care (01) | DRG 291 ==
LOC: H.ER 12:23 → H.ERHOLD 16:59 → H.MEDSURG1 21:00
PROVIDERS: ADMIT Student in an Organized Health Care Education/Training Program; ATTEND Student in an Organized Health Care Education/Training Program
DX: I11.0 Hypertensive heart disease with heart failure (principal); J15.9 Unspecified bacterial pneumonia; I50.23 Acute on chronic systolic (congestive) heart failure; E11.65 Type 2 diabetes mellitus with hyperglycemia; I27.20 Pulmonary hypertension, unspecified; I07.1 Rheumatic tricuspid insufficiency; E78.5 Hyperlipidemia, unspecified; E86.0 Dehydration; I25.10 Atherosclerotic heart disease of native coronary artery without angina pectoris; Z95.1 Presence of aortocoronary bypass graft; Z79.02 Long term (current) use of antithrombotics/antiplatelets; Z79.82 Long term (current) use of aspirin; Z87.891 Personal history of nicotine dependence; Z91.14 Patient's other noncompliance with medication regimen; E87.6 Hypokalemia